=== PATIENT | male | born 1970 | race Caucasian/White ===

== ENCOUNTER 2020-06-18 17:05 | Emergency (ER) | payer SELFPAY ==
[2020-06-18 17:23] VITALS: BP 133/87; PULSE 68; RESP 18; TEMP 36.6; O2SAT 99; BMI 20.3
--- NOTE | 2020-06-18 17:37 | US_ITS ---
WS: [id number] RIGHT UPPER QUADRANT ULTRASOUND HISTORY: RUQ pain with vomiting COMPARISON: 11/05/2007 Liver: 12.5 cm in length. Normal size liver. No bile duct dilatation or mass. Gallbladder: Normally distended gallbladder with no stones or wall thickening. CBD: 0.3 cm Pancreas: Normal size and echogenicity. Right kidney: 11.1 cm in length. Normal size and echogenicity. No hydronephrosis or mass. Aorta and IVC: Unremarkable abdominal aorta and IVC. No ascites. US/US gall bladder [id number] IMPRESSION: Normal RIGHT upper quadrant ultrasound.
--- NOTE | 2020-06-18 17:39 | W.ED.ABDPA2 ---
HPI - Abdominal Pain General: Chief Complaint: Abdominal Pain Stated Complaint: stomach pains, threw up blood this AM Time Seen by Provider: 06/18/20 17:15 Source: patient Mode of arrival: ambulatory Limitations: no limitations History of Present Illness: HPI narrative: Pleasant 49-year-old male patient to the emergency department with 2 to 3-month history of abdominal pain. He reports pain occurs in waves along with nausea. He states feels he is on a roller coaster with his symptoms of nausea. He sometimes experiences nausea vomiting in the mornings and sometimes he does not. He reports abdominal pain does not coincide with meals; however he states at times he can drink something and then vomit. He denies fever, denies chills, denies diarrhea. He reports chronic history of constipation but does not take anything [id number] for it. He reports use of Pepto-Bismol without relief. He reports last episode of emesis was this morning, states there may have been blood in it but not for sure. He also reports ate today between 2 and 3:00 PM. He denies nausea or vomiting/complaints of abdominal pain at this time. He reports has not followed up with a primary care provider as he is new to the area and states lack of insurance has compromised his ability for follow-up. MD elicited complaint: abdominal pain Associated Symptoms: Reports bloating, constipation, hematemesis, nausea and vomiting; Denies belching, change in bowel habits, change in stool character, chills, GI cramping, diarrhea, dysuria, excessive flatus, fever(s), heartburn, hematochezia, hematuria, fecal incontinence and melena Review of Systems General: Reports: 10 or more systems reviewed and unremarkable except in HPI and below Const: Reports: fatigue; Denies: fever(s), chills, malaise, night sweats or diaphoresis Eyes: Denies: blurry vision, eye redness, yellow eyes or seeing flashes ENMT: Denies: throat pain, uvular edema, dental pain, halitosis, disequilibrium, nasal discharge, nasal congestion or epistaxis Card: Denies: chest pain, palpitations, irregular heart rhythm, swelling of feet/ankles, lightheadedness, dyspnea on exertion or orthopnea Resp: Denies: dyspnea, productive cough, non-productive cough, wheezing or chest congestion GI: Reports: abdominal pain, nausea, vomiting, hematemesis, dysphagia, early satiety, constipation and bloating; Denies: heartburn, diarrhea, GI cramping, belching, excessive flatus, fecal incontinence, change in bowel habits, change in stool character, hematochezia or melena : Denies: difficulty urinating, dysuria, difficulty starting urination or hematuria Musc: Denies: neck pain, back pain, joint pain or joint warmth Skin/Breast: Denies: rash, pruritus, erythema or changes in skin color Neuro: Denies: headache(s), weakness in extremities or behavioral changes Psych: Denies: anxiety or depression Jerome/Lymph: Denies: easy bruising PFSH ED PFSH: Medical History (Updated 06/18/20 @ 21:46 by MELIDA Mayberry) Healthy adult Surgical History History of lumbar laminectomy History of tonsillectomy Social History (Updated 06/18/20 @ 17:47 by MELIDA Mayberry) Alcohol intake: never Substance/Drug Use: never Physical Exam Const: COMMON NORMALS: no acute distress, patient oriented x3, healthy appearing and alert GENERAL APPEARANCE: cooperative, comfortable and well hydrated HENMT: COMMON NORMALS: normocephalic, Normal external nose present and moist oral mucous membranes HEAD & SCALP: normocephalic NOSE: Normal external nose present THROAT: no uvular edema Eye: COMMON NORMALS: Equal, round and reactive pupils present and EOMs intact bilaterally GENERAL EYE: appearance normal, both eyes and all related structures PUPIL: Yes Equal, round and reactive pupils present Neck/C-Spine: COMMON NORMALS: full ROM and no lymphadenopathy GENERAL: Yes normal visual inspection and Yes trachea midline CERVICAL SPINE: Yes cervical ROM normal Lymph: LYMPHATIC: no lymphadenopathy noted Chest: COMMONS NORMALS: normal inspection of the chest and normal palpation of entire chest wall CHEST: No localized rib tenderness with anteroposterior compression Resp: COMMON NORMALS: normal respiratory effort, No retractions, No use of accessory muscles and clear to auscultation bilaterally EFFORT & INSPECTION: Yes able to speak in complete sentences and No audible wheezes AUSCULTATION: clear to auscultation bilaterally, no wheezes and lung sounds not diminished Cardio: COMMON NORMALS: regular rate, regular rhythm, S1 normal heart sound present, S2 normal heart sound present and Peripheral pulses 2+ throughout RATE: regular rate RHYTHM: regular rhythm HEART SOUNDS: S1 normal heart sound present and S2 normal heart sound present PERIPHERAL PULSES: Peripheral pulses 2+ throughout GI: COMMON NORMALS: Normal to inspection, nondistended, normoactive bowel sounds present and Soft to palpation INSPECTION: Yes normal to inspection, No Abdominal wall edema, No central obesity, No visible herniation and No Fluid wave present AUSCULTATION: Yes normoactive bowel sounds PALPATION: Yes Soft to palpation, Yes Tenderness to palpation present (GI) Details: RUQ, No Hepatosplenomegaly present, No Ascites present and No Abdominal wall crepitus present PERCUSSION: normal to percussion and no fluid wave : COMMON NORMALS: Yes no CVA tenderness BLADDER/KIDNEY EXAM: Yes no CVA tenderness Back/Pelvis: COMMON NORMALS: no CVA tenderness, thoracic and lumbar spine normal to inspection, no thoracic nor lumbar tenderness, thoraco-lumbar ROM normal and straight leg raise negative bilaterally Extremity: COMMON NORMALS: normal to inspection, full ROM, capillary refill normal and no pedal edema GENERAL: Yes normal exam except as noted Neuro: COMMON NORMALS: patient oriented x3 and no focal motor deficits SENSORIUM/ORIENTATION: Yes alert Psych: COMMON NORMALS: mental status grossly normal, Normal thought process present and cooperative ACTIVITY/MOTOR BEHAVIOR: Yes appropriate eye contact THOUGHT PROCESS: Normal thought process present Skin: COMMON NORMALS: no rashes or lesions noted and turgor normal GENERAL SKIN EXAM: no rashes or lesions noted and turgor normal Course Vital Signs: Vital signs: Vital Signs Temperature 97.8 F 06/18/20 17:23 Pulse Rate 70 06/18/20 22:58 Respiratory Rate 18 06/18/20 22:58 Blood Pressure 106/60 06/18/20 22:58 Pulse Oximetry 98 06/18/20 22:58 MDM - Abdominal Pain MDM Narrative: Medical decision making narrative: 49-year-old male patient presents to the emergency department with several month history of abdominal pain. He reports possible blood in his emesis this morning, patient found to have right upper quadrant tenderness upon exam, right upper quadrant ultrasound revealed questionable edema around the gallbladder with contraction of the gallbladder. CT of the abdomen and pelvis with IV contrast revealed normal appearing gallbladder with moderate to large amount of formed stool throughout the colon. Serology results normal, lipase 22, white blood count normal. He does states does not have a primary care provider and referral to sr. social media & mobile manager completed to assist with PCP referral process. 1 bottle of mag citrate was provided here in the ED for his constipation. I discussed bowel regimen with initiation of MiraLAX daily. He has suffered from constipation for years. I discussed possible need for colonoscopy with establishment of primary care due to continued constipation habit. He did not exhibit nausea vomiting here in the ED. Patient was administered morphine with resolution of pain he experienced after ultrasound completed. He was initiated on Pepcid for gastritis Differential Diagnosis: Differential diagnosis abdominal pain: Likely abdominal pain, acute appendicitis and constipation Lab Data: Labs: Lab Results 06/18/20 06/18/20 06/18/20 Range/Units 18:10 18:10 20:30 WBC 4.6 (4.0-10.0) 10^3/ uL RBC 4.26 (4.1-5.3) 10^6/u L Hgb 12.9 (11.7-16.6) g/dL Hct 38.8 L (42.0-52.0) % MCV 91.1 (80-94) fL MCH 30.3 (28.0-34.0) pg MCHC 33.2 (30.0-36.0) g/dL RDW 13.0 (12.1-15.1) % Plt Count 201 (130-400) 10^3/c mm MPV 11.3 H (7.4-10.4) fL Neut % (Auto) 52.1 % Lymph % (Auto) 29.6 % [place] % (Auto) 15.2 % Eos % (Auto) 2.2 % Baso % (Auto) 0.9 % Neut # (Auto) 2.40 (1.8-7.7) 10^3/u L Lymph # (Auto) 1.4 (0.8-4.8) 10^3/u L [place] # (Auto) 0.7 (0.2-0.9) 10^3/u L Eos # (Auto) 0.1 (0.0-0.8) 10^3/u L Baso # (Auto) 0.0 (0.0-0.1) 10^3/u L Nucleated RBC % (a uto) 0 % Nucleated RBCs # 0.0 /100WBC Sodium 140 (136-145) mmol/L Potassium 4.0 (3.5-5.1) mmol/L Chloride 104 (98-107) mmol/L Carbon Dioxide 26 (22-29) mmol/L Anion Gap 14.0 (5-19) BUN 18 (6-20) mg/dL Creatinine 0.7 (0.7-1.2) mg/dL GFR Calculation 120.9 (90-130) mL/min Glucose 122 H (65-115) mg/dL Calculated Osmolal ity 293 (285-295) mOsm/k g Calcium 8.3 L (8.5-10.5) mg/dL Total Bilirubin 0.4 (0.15-1.2) mg/dL AST 19 (0-40) U/L ALT 16 (0-41) U/L Alkaline Phosphata se 47 (40-130) IU/L Total Protein 6.8 (6.6-8.7) g/dL Albumin 4.0 (3.5-5.2) g/dL Globulin 2.8 (1.3-4.6) g/dL Lipase 22 (13-60) U/L Urine Color Yellow (Yellow) Urine Appearance Cloudy (CLEAR) Urine pH 7 (5-7) Ur Specific Gravit y 1.010 (1.005-1.030) Urine Protein Neg (Negative) Urine Glucose (UA) Norm (Normal) Urine Ketones Negative (Negative) Urine Blood Neg (Negative) Urine Nitrate Negative (Negative) Urine Bilirubin Neg (Negative) Urine Urobilinogen Norm (Negative) mg/dL Ur Leukocyte Kathryn ase Negative (Negative) Urine RBC 0-4 H (0-2) /hpf Urine WBC None (0-5) /hpf Ur Squamous Epith Cells Rare (0-5) /hpf Amorphous Sediment Not Reportable Urine Bacteria None (NONE) /hpf Imaging Data ^: CT Abd/Pel: Radiologist's impression: [address] [address] [address] Scan Report Signed Patient: Suhail Cao Unit #: [id number] : 1970 Age/Sex: 49 / M ADM Date: 06/18/20 Loc: ER Room/Bed: Attending Dr: Ordering Provider/Ordering MD: Yudy Romero Date of Service: 06/18/20 Procedure(s): CT abdomen pelvis w con* [id number] Accession Number(s): [id number] Report Number: [id number] PROCEDURE INFORMATION: Exam: CT Abdomen And Pelvis With Contrast Exam date and time: 06/18/2020 8:46 PM Age: 49 years old Clinical indication: Abdominal pain; Generalized; Prior surgery; Surgery type: Lumbar fusion; Patient HX: Abd pain with n/v; Additional info: Abd pain, gb edema TECHNIQUE: Imaging protocol: Computed tomography of the abdomen and pelvis with contrast. Radiation optimization: All CT scans at this facility use at least one of these dose optimization techniques: automated exposure control; mA and/or kV adjustment per patient size (includes targeted exams where dose is matched to clinical indication); or iterative reconstruction. Contrast material: OMNI 300; Contrast volume: 95 ml; Contrast route: INTRAVENOUS (IV); COMPARISON: US gall bladder [id number] 06/18/2020 6:57 PM RADIATION DOSE METRICS: Total DLP (mGy-cm): 946.41 FINDINGS: Lungs: The visualized lung bases are clear. Liver: Normal size and density. No focal mass. Gallbladder and bile ducts: No intrahepatic or extrahepatic biliary dilitation. No calcified stones. A Phrygian cap noted. No CT evidence of edema or pericholecystic fluid. Pancreas: No evidence of mass. No ductal dilation. Spleen: No splenomegaly or mass. Adrenal glands: Normal. Kidneys and ureters: A 3 mm left renal stone. No hydronephrosis. Normal renal enhancement. Stomach and bowel: Moderate to large amount of formed stool throughout the colon. No signs of obstruction. No significant diverticula. No focal bowel wall thickening or mass. Appendix: Normal appendix. Intraperitoneal space: No free air. No free fluid or evidence of abscess. Vasculature: No concerning abnormalities. Lymph nodes: No lymphadenopathy. Urinary bladder: Normal CT appearance. Reproductive: Normal CT appearance for age. Bones/joints: Postsurgical changes at L5-S1. Soft tissues: Within normal limits. CT/CT abdomen pelvis w con* [id number]: 1[address] No CT abnormalities of the gallbladder. 2. A 3 mm left renal stone. 3. Moderate to large amount of formed stool throughout the colon. Radiation Dose CTDIVOL = (mGy): DLP = 946.41 (mGy-cm) Dictated By: Kevyn Webb Signed By: Kevyn Webb Discharge Plan Discharge Patient Disposition: Home Clinical Impression: Constipation Qualifiers: Constipation type: slow transit constipation Qualified Code(s): K59.01 - Slow transit constipation Abdominal pain Qualifiers: Abdominal location: generalized Qualified Code(s): R10.84 - Generalized abdominal pain Gastritis Qualifiers: Gastritis type: unspecified gastritis Chronicity: unspecified Gastritis bleeding: without bleeding Qualified Code(s): K29.70 - Gastritis, unspecified, without bleeding Condition: Stable Prescriptions: New Miralax 17 gram/dose powder 17 g PO DAILY Qty: 510 RF: 0 Pepcid 20 mg tablet 20 mg PO BID Qty: 20 RF: 0 No Action Requip 1 mg Tablet See Rx Instructions .ROUTE .COMPLEX RF: 0 lisinopril 20 mg Tablet See Rx Instructions .ROUTE .COMPLEX RF: 0 Ultram 50 mg Tablet 50 mg PO Q6H PRN (Reason: Pain) RF: 0 Discharge Orders: Discharge ED (Routine); Ordered 06/18/20 Ordered By: Yudy Romero Referrals: Sarthak Metcalf MD [Primary Care Provider] - Discharge Activity: Resume usual activity Patient Instructions: Gastritis (ED), Constipation (ED), High Fiber Diet (ED), Abdominal Pain (ED), Opioid Safety Activity Restrictions/Additional Instructions: nursing services manager will be contacting you with a follow-up appointment with your primary care provider -please follow-up accordingly Take prescribed medications as directed If diarrhea occurs, stop MiraLAX Return to the emergency department if you develop worsening pain, vomiting blood or blood in your stool Stand Alone Forms: Work/School Release Coding Level of Care Code ED Vision Mixer for Chg Fwd Exam Comprehensive
[2020-06-18 18:17] VITALS: O2SAT 96
[2020-06-18 18:54] LABS: Basophils % 0.9 %; Eosinophils # 0.1 10^3/uL (0.0-0.8); Eosinophils % 2.2 %; Hematocrit 38.8 % (42.0-52.0); Hemoglobin 12.9 g/dL (11.7-16.6); Lymphocytes # 1.4 10^3/uL (0.8-4.8); Lymphocytes % 29.6 %; Mean Corpuscular HGB Conc 33.2 g/dL (30.0-36.0); Mean Corpuscular Hemoglobin 30.3 pg (28.0-34.0); Mean Corpuscular Volume 91.1 fL (80-94); Mean Platelet Volume 11.3 fL (7.4-10.4); Monocytes # 0.7 10^3/uL (0.2-0.9); Monocytes % 15.2 %; Neutrophils % 52.1 %; Nucleated Red Blood Cells % 0 %; Platelet Count 201 10^3/cmm (130-400); Red Blood Count 4.26 10^6/uL (4.1-5.3); White Blood Count 4.6 10^3/uL (4.0-10.0)
--- NOTE | 2020-06-18 19:10 | CTR_ITS ---
PROCEDURE INFORMATION: Exam: CT Abdomen And Pelvis With Contrast Exam date and time: 06/18/2020 8:46 PM Age: 49 years old Clinical indication: Abdominal pain; Generalized; Prior surgery; Surgery type: Lumbar fusion; Patient HX: Abd pain with n/v; Additional info: Abd pain, gb edema TECHNIQUE: Imaging protocol: Computed tomography of the abdomen and pelvis with contrast. Radiation optimization: All CT scans at this facility use at least one of these dose optimization techniques: automated exposure control; mA and/or kV adjustment per patient size (includes targeted exams where dose is matched to clinical indication); or iterative reconstruction. Contrast material: OMNI 300; Contrast volume: 95 ml; Contrast route: INTRAVENOUS (IV); COMPARISON: US gall bladder [id number] 06/18/2020 6:57 PM RADIATION DOSE METRICS: Total DLP (mGy-cm): 946.41 FINDINGS: Lungs: The visualized lung bases are clear. Liver: Normal size and density. No focal mass. Gallbladder and bile ducts: No intrahepatic or extrahepatic biliary dilitation. No calcified stones. A Phrygian cap noted. No CT evidence of edema or pericholecystic fluid. Pancreas: No evidence of mass. No ductal dilation. Spleen: No splenomegaly or mass. Adrenal glands: Normal. Kidneys and ureters: A 3 mm left renal stone. No hydronephrosis. Normal renal enhancement. Stomach and bowel: Moderate to large amount of formed stool throughout the colon. No signs of obstruction. No significant diverticula. No focal bowel wall thickening or mass. Appendix: Normal appendix. Intraperitoneal space: No free air. No free fluid or evidence of abscess. Vasculature: No concerning abnormalities. Lymph nodes: No lymphadenopathy. Urinary bladder: Normal CT appearance. Reproductive: Normal CT appearance for age. Bones/joints: Postsurgical changes at L5-S1. Soft tissues: Within normal limits. CT/CT abdomen pelvis w con* [id number]PRESS[address]: 1. No CT abnormalities of the gallbladder. 2. A 3 mm left renal stone. 3. Moderate to large amount of formed stool throughout the colon. Radiation Dose CTDIVOL = (mGy): DLP = 946.41 (mGy-cm)
[2020-06-18 19:35] VITALS: BP 103/58; PULSE 68; RESP 18; O2SAT 97
[2020-06-18 19:39] LABS: Alanine Aminotransferase 16 U/L (0-41); Alkaline Phosphatase 47 IU/L (40-130); Aspartate Amino Transferase 19 U/L (0-40); Blood Urea Nitrogen 18 mg/dL (6-20); Calcium 8.3 mg/dL (8.5-10.5); Carbon Dioxide 26 mmol/L (22-29); Chloride 104 mmol/L (98-107); Globulin 2.8 g/dL (1.3-4.6); Glomerular Filtration Rate 120.9 mL/min (90-130); Glucose 122 mg/dL (65-115); Lipase 22 U/L (13-60); Osmolality Calculated 293 mOsm/kg (285-295); Sodium 140 mmol/L (136-145); Total Bilirubin 0.4 mg/dL (0.15-1.2); Total Protein 6.8 g/dL (6.6-8.7)
[2020-06-18 20:30] VITALS: RESP 18
[2020-06-18] MEDS: morphine 4 mg/mL SDV 1 mL IVP (20:30)
[2020-06-18] MEDS: ondansetron 2 mg/ML SDV 2 mL 4 MG IVP (20:30)
[2020-06-18 20:55] LABS: Add Urine Microscopic? YES; Bilirubin Urine Neg (Negative); Blood Urine Neg (Negative); Glucose Urine UA Norm (Normal); Ketones Urine Negative (Negative); Leukocyte Esterase Urine Negative (Negative); Nitrate Urine Negative (Negative); Protein Urine Neg (Negative); RBC Urine 0-4 /hpf (0-2); Urine Appearance Cloudy (CLEAR); Urine Color Yellow (Yellow); Urobilinogen Urine Norm (Negative); pH Urine 7 (5-7)
[2020-06-18 20:56] LABS: Add Urine Culture? No; Squamous Epithelial Cell Urine RARE /hpf (0-5)
[2020-06-18] MEDS: iohexol 300 mg/mL 100 mL Btl IV (21:01)
[2020-06-18 22:58] VITALS: BP 106/60; PULSE 70; RESP 18; O2SAT 98
--- NOTE | 2020-06-19 10:30 | DCPLANNER ---
feedlot manager had message to speak with patient about getting established with a primary care physician. feedlot manager called phone number [phone], spoke with patients . feedlot manager asked patients , if she would give patient a message to call lead case manager back regarding getting established with a primary care physician.
== END 2020-06-18 22:30 | disposition home or self-care (01) ==
PROVIDERS: Emergency Medicine; Emergency Provider Nurse Practitioner Family; PCP Family Medicine
DX: K59.01 Slow transit constipation (principal); K29.70 Gastritis, unspecified, without bleeding
CPT/HCPCS: 74177; 76705; 80053; 81001; 83690; 85025; 96374; 96375; 99284; J2270; J2405; Q9967

== ENCOUNTER 2020-06-21 11:43 | Emergency (ER) | payer SELFPAY ==
[2020-06-21 12:23] VITALS: BP 164/105; PULSE 76; RESP 18; TEMP 37.2; O2SAT 98; BMI 19.6
[2020-06-21 12:37] VITALS: BP 141/92; PULSE 70; RESP 15; O2SAT 98
[2020-06-21 13:07] LABS: Basophils % 0.6 %; Eosinophils % 0.2 %; Hematocrit 43.7 % (42.0-52.0); Hemoglobin 14.5 g/dL (11.7-16.6); Lymphocytes # 1.1 10^3/uL (0.8-4.8); Lymphocytes % 21.2 %; Mean Corpuscular HGB Conc 33.2 g/dL (30.0-36.0); Mean Corpuscular Hemoglobin 30.2 pg (28.0-34.0); Mean Platelet Volume 10.7 fL (7.4-10.4); Monocytes # 0.6 10^3/uL (0.2-0.9); Monocytes % 11.1 %; Neutrophils # 3.49 10^3/uL (1.8-7.7); Neutrophils % 66.5 %; Nucleated Red Blood Cells % 0 %; Platelet Count 214 10^3/cmm (130-400); Red Cell Distribution Width 12.8 % (12.1-15.1); White Blood Count 5.2 10^3/uL (4.0-10.0)
--- NOTE | 2020-06-21 13:19 | ED_ITS ---
HPI - Abdominal Pain General: Chief Complaint: Abdominal Pain Stated Complaint: AB PAIN Time Seen by Provider: 06/21/20 12:38 History of Present Illness: HPI narrative: Patient is a 49-year-old male who comes to the ED with abdominal pain and nausea. Patient was seen here in the ED for same complaint on June 18. Patient was diagnosed with gastritis, constipation and abdominal pain and discharged home with a prescription for Pepcid and MiraLAX and patient says he is not filled those prescriptions yet. He comes to the ED with periumbilical abdominal pain that he rates a 6 out of 10. Patient's pain he describes is sharp and stabbing pain in the abdomen. He reports having nausea for the past couple days but denies any emesis since being discharged on the . He has had multiple soft stools over the last 3 days. He reports a decreased appetite but says that that is a chronic issue that he has had for months. He reports when he eats he gets nauseous a lot of times and cannot eat very much. Denies fever, chills, chest pain, shortness of breath, dysuria or hematuria. Associated Symptoms: Reports diarrhea and nausea; Denies chills, constipation, dysuria, fever(s), hematochezia, hematuria and vomiting Review of Systems Const: Denies: fever(s), chills or fatigue Eyes: Denies: change in vision or eye discomfort ENMT: Denies: throat pain, odynophagia, nasal discharge or nasal congestion Card: Denies: chest pain, palpitations, edema, swelling of feet/ankles, dyspnea on exertion or orthopnea Resp: Denies: dyspnea, productive cough or non-productive cough GI: Reports: abdominal pain, nausea and diarrhea; Denies: vomiting, constipation or hematochezia : Denies: flank pain, difficulty urinating, dysuria or hematuria Musc: Denies: neck pain, back pain or extremity swelling Skin/Breast: Denies: rash or new lesions Neuro: Denies: headache(s), numbness in extremities or weakness in extremities PFS ED PFSH: Medical History Healthy adult Surgical History History of lumbar laminectomy History of tonsillectomy Social History Alcohol intake: never Physical Exam Const: COMMON NORMALS: no acute distress, patient oriented x3 and alert GENERAL APPEARANCE: cooperative and comfortable HENMT: COMMON NORMALS: normocephalic HEAD & SCALP: normocephalic MOUTH: Normal oral and palatal mucosa present THROAT: posterior oropharynx normal and uvula midline Neck/C-Spine: COMMON NORMALS: supple GENERAL: Yes normal visual inspection Resp: COMMON NORMALS: normal respiratory effort, No retractions, No use of accessory muscles and clear to auscultation bilaterally AUSCULTATION: clear to auscultation bilaterally Cardio: COMMON NORMALS: regular rate, regular rhythm, S1 normal heart sound present, S2 normal heart sound present, No gallops present (Cardio), No clicks present (Cardio), No murmurs present (Cardio) and Peripheral pulses 2+ throughout RATE: regular rate RHYTHM: regular rhythm HEART SOUNDS: S1 normal heart sound present and S2 normal heart sound present PERIPHERAL PULSES: Peripheral pulses 2+ throughout GI: COMMON NORMALS: Normal to inspection, nondistended, normoactive bowel sounds present, Soft to palpation and no masses PALPATION: Yes Soft to palpation and Yes Tenderness to palpation present (GI) Details: other (Mild periumbilical tenderness.) : COMMON NORMALS: Yes no CVA tenderness BLADDER/KIDNEY EXAM: Yes no CVA tenderness Back/Pelvis: COMMON NORMALS: no CVA tenderness Extremity: COMMON NORMALS: normal to inspection Neuro: COMMON NORMALS: patient oriented x3 SENSORIUM/ORIENTATION: Yes alert GAIT: Yes Normal gait present Skin: GENERAL SKIN EXAM: dry skin Course Vital Signs: Vital signs: Vital Signs Temperature 98.9 F 06/21/20 12:23 Pulse Rate 73 06/21/20 14:50 Respiratory Rate 15 06/21/20 14:50 Blood Pressure 122/79 06/21/20 14:50 Pulse Oximetry 97 06/21/20 14:50 MDM - Abdominal Pain MDM Narrative: Medical decision making narrative: Patient is a 49-year-old male comes to the ED with nausea and abdominal pain. Patient was seen here in the ED on June 18 for same complaint. He was discharged home with Pepcid and he has not filled prescription yet. Full work-up was done on June [address] of abdomen just showed large amount of stool in bowels with no impaction. Ultrasound gallbladder showed no acute findings. Patient having similar symptoms as he had on the . Vital stable. Labs were unremarkable. Due to no real change in symptoms or labs since CT abdomen and ultrasound of the gallbladder were done 3 days ago, so I did not order any repeat imaging. Patient was given IV fluids, Zofran, morphine and a GI cocktail symptoms improved. Patient diagnosed with gastritis and abdominal pain and discharged home with a prescription for Zofran. I told him he needs to get his Pepcid prescription filled soon as he can. Patient received a referral from case management to set up a PCP. Return to ED precautions given. Patient understood agree with plan. Lab Data: Attestation: I reviewed the patient's lab results. Labs: Lab Results 06/21/20 06/21/20 Range/Units 13:00 13:00 WBC 5.2 (4.0-10.0) 10^3/ uL RBC 4.80 (4.1-5.3) 10^6/u L Hgb 14.5 (11.7-16.6) g/dL Hct 43.7 (42.0-52.0) % MCV 91.0 (80-94) fL MCH 30.2 (28.0-34.0) pg MCHC 33.2 (30.0-36.0) g/dL RDW 12.8 (12.1-15.1) % Plt Count 214 (130-400) 10^3/c mm MPV 10.7 H (7.4-10.4) fL Neut % (Auto) 66.5 % Lymph % (Auto) 21.2 % [place] % (Auto) 11.1 % Eos % (Auto) 0.2 % Baso % (Auto) 0.6 % Neut # (Auto) 3.49 (1.8-7.7) 10^3/u L Lymph # (Auto) 1.1 (0.8-4.8) 10^3/u L [place] # (Auto) 0.6 (0.2-0.9) 10^3/u L Eos # (Auto) 0.0 (0.0-0.8) 10^3/u L Baso # (Auto) 0.0 (0.0-0.1) 10^3/u L Nucleated RBC % (a uto) 0 % Nucleated RBCs # 0.0 /100WBC Sodium 138 (136-145) mmol/L Potassium 4.3 (3.5-5.1) mmol/L Chloride 103 (98-107) mmol/L Carbon Dioxide 27 (22-29) mmol/L Anion Gap 12.3 (5-19) BUN 12 (6-20) mg/dL Creatinine 0.6 L (0.7-1.2) mg/dL GFR Calculation 144.4 H (90-130) mL/min Glucose 91 (65-115) mg/dL Calculated Osmolal ity 285 (285-295) mOsm/k g Calcium 8.7 (8.5-10.5) mg/dL Total Bilirubin 0.5 (0.15-1.2) mg/dL AST 18 (0-40) U/L ALT 15 (0-41) U/L Alkaline Phosphata se 51 (40-130) IU/L Total Protein 7.8 (6.6-8.7) g/dL Albumin 4.3 (3.5-5.2) g/dL Globulin 3.5 (1.3-4.6) g/dL Lipase 99 H (13-60) U/L Discharge Plan Discharge Patient Disposition: Home Clinical Impression: Gastritis Qualifiers: Gastritis type: unspecified gastritis Chronicity: acute Gastritis bleeding: without bleeding Qualified Code(s): K29.00 - Acute gastritis without bleeding Abdominal pain Qualifiers: Abdominal location: periumbilical Qualified Code(s): R10.33 - Periumbilical pain Condition: Stable Prescriptions: New Zofran 4 mg tablet 4 mg PO Q8H Qty: 30 RF: 0 No Action ropinirole [Requip] 1 mg Tablet See Rx Instructions .ROUTE .COMPLEX RF: 0 lisinopril 20 mg Tablet See Rx Instructions .ROUTE .COMPLEX RF: 0 tramadol [Ultram] 50 mg Tablet 50 mg PO Q6H PRN (Reason: Pain) RF: 0 polyethylene glycol 3350 [Miralax] 17 gram/dose powder 17 g PO DAILY Qty: 510 RF: 0 famotidine [Pepcid] 20 mg tablet 20 mg PO BID Qty: 20 RF: 0 aspirin 325 mg Tablet 325 mg PO PRN RF: 0 ibuprofen 200 mg Tablet 600 mg PO PRN RF: 0 Discharge Orders: Discharge ED (Routine); Ordered 06/21/20 Ordered By: Se Addison Discharge Diet: Advance as tolerated Discharge Activity: Resume usual activity Patient Instructions: Gastritis (ED), Abdominal Pain (ED) Activity Restrictions/Additional Instructions: Follow-up with medical provider as directed. Call back case management to get set up with your PCP. Take medications as prescribed. Return to the ER or your medical provider if condition worsens. Please read and understand discharge instructions. If any questions, please ask. Coding Level of Care Code ED [employer] for Billy Fwd Exam Comprehensive
[2020-06-21 13:27] VITALS: BP 127/80; PULSE 90; RESP 16; O2SAT 98
[2020-06-21] MEDS: morphine 4 mg/mL SDV 1 mL IVP (13:28)
[2020-06-21] MEDS: ondansetron 2 mg/ML SDV 2 mL 4 MG IVP (13:28)
[2020-06-21] MEDS: sodium chloride 0.9% 1,000 ML 999 ML IV (13:29)
[2020-06-21 13:31] LABS: Alanine Aminotransferase 15 U/L (0-41); Albumin Level 4.3 g/dL (3.5-5.2); Alkaline Phosphatase 51 IU/L (40-130); Anion Gap 12.3 (5-19); Aspartate Amino Transferase 18 U/L (0-40); Blood Urea Nitrogen 12 mg/dL (6-20); Calcium 8.7 mg/dL (8.5-10.5); Carbon Dioxide 27 mmol/L (22-29); Chloride 103 mmol/L (98-107); Globulin 3.5 g/dL (1.3-4.6); Glomerular Filtration Rate 144.4 mL/min (90-130); Glucose 91 mg/dL (65-115); Lipase 99 U/L (13-60); Osmolality Calculated 285 mOsm/kg (285-295); Potassium 4.3 mmol/L (3.5-5.1); Sodium 138 mmol/L (136-145); Total Bilirubin 0.5 mg/dL (0.15-1.2); Total Protein 7.8 g/dL (6.6-8.7)
[2020-06-21] MEDS: lidocaine 2% viscous 15 ML, aluminum-mag hydrox-simethicon 30 ML, sucralfate oral liq 1 GM PO (14:48)
[2020-06-21 14:50] VITALS: BP 122/79; PULSE 73; RESP 15; O2SAT 97
--- NOTE | 2020-06-24 12:58 | DCPLANNER ---
Addendum entered by Sherrie Alan 06/26/20 09:51: api product manager tried to call patient again at phone number [phone], which a recording stated that the phone number is not reachable at this time. Letter was sent to patient with the appointment information. Original Note: Patient called child welfare caseworker to ask child welfare caseworker about getting established with a primary care physician. Patient stated that he would like to be seen with [facility] and that he would like to be established with a woman. api product manager called [facility], spoke with Soh, a follow up appointment was scheduled for Sunday, July 12, 2020 at 9:[address] Fierro. api product manager called phone number at [phone], which is no longer taking calls. api product manager also called [phone] which is no longer in service. api product manager mailed patient a letter with the appointment information included.
--- NOTE | 2020-06-27 11:35 | DCPLANNER ---
manager state called patients phone number again, this time case preparer and liner was able to speak wit patients friend, gave her the appointment information. manager state explained that case preparer and liner had not been able to reach patient to give him the appointment information and that a letter was sent to patient with the appointment information. manager state also explained that [facility] will send a letter to patient and if patient does not call and confirm the appointment that the appointment will be cancelled.
--- NOTE | 2020-07-22 15:46 | DCPLANNER ---
Patient had a follow up appointment scheduled for 07.11.[address] Fierro for primary care. Patient did attend appointment.
== END 2020-06-21 14:55 | disposition home or self-care (01) ==
PROVIDERS: Emergency Provider Physician Assistant
DX: K29.00 Acute gastritis without bleeding (principal); R10.33 Periumbilical pain; Z79.82 Long term (current) use of aspirin
CPT/HCPCS: 80053; 83690; 85025; 96361; 96374; 96375; 96376; 99284; J2270; J2405; J7030

== ENCOUNTER 2020-12-03 18:31 | Emergency (ER) | payer SELFPAY ==
[2020-12-03 19:22] VITALS: BP 155/97; PULSE 77; RESP 16; TEMP 36.9; O2SAT 97; BMI 20.3
[2020-12-03 21:03] LABS: Basophils # 0.1 10^3/uL (0.0-0.1); Basophils % 0.8 %; Eosinophils # 0.1 10^3/uL (0.0-0.8); Eosinophils % 1.7 %; Hematocrit 43.2 % (42.0-52.0); Hemoglobin 14.3 g/dL (11.7-16.6); Mean Corpuscular HGB Conc 33.1 g/dL (30.0-36.0); Mean Corpuscular Volume 93.5 fl (80-94); Mean Platelet Volume 10.9 fL (7.4-10.4); Monocytes # 0.9 10^3/uL (0.2-0.9); Monocytes % 13.7 %; Neutrophils # 3.44 10^3/uL (1.8-7.7); Neutrophils % 52.5 %; Nucleated Red Blood Cells % 0 %; Platelet Count 198 10^3/cmm (130-400); Red Blood Count 4.62 10^6/uL (4.1-5.3); Red Cell Distribution Width 13.4 % (12.1-15.1); White Blood Count 6.6 10^3/uL (4.0-10.0)
[2020-12-03 21:29] LABS: Alanine Aminotransferase 33 U/L (0-41); Albumin Level 4.3 g/dL (3.5-5.2); Alkaline Phosphatase 58 IU/L (40-130); Aspartate Amino Transferase 27 U/L (0-40); Blood Urea Nitrogen 10 mg/dL (6-20); Calcium 8.8 mg/dL (8.5-10.5); Carbon Dioxide 29 mmol/L (22-29); Chloride 101 mmol/L (98-107); Globulin 3.2 g/dL (1.3-4.6); Glomerular Filtration Rate 103.2 mL/min (90-130); Glucose 86 mg/dL (65-115); Lipase 258 U/L (13-60); Osmolality Calculated 286 mOsm/kg (285-295); Sodium 139 mmol/L (136-145); Total Bilirubin 0.2 mg/dL (0.15-1.2); Total Protein 7.5 g/dL (6.6-8.7)
[2020-12-03 21:30] LABS: Anion Gap 13.1 (5-19); Potassium 4.1 mmol/L (3.5-5.1)
--- NOTE | 2020-12-03 22:27 | CTR_ITS ---
PROCEDURE INFORMATION: Exam: CT Abdomen And Pelvis With Contrast Exam date and time: 12/03/2020 10:27 PM Age: 50 years old Clinical indication: Abdominal pain; Prior surgery; Surgery type: Lumbar; Patient HX: Periumbilical pain with bloating. ; Additional info: Abd pain TECHNIQUE: Imaging protocol: Computed tomography of the abdomen and pelvis with contrast. Radiation optimization: All CT scans at this facility use at least one of these dose optimization techniques: automated exposure control; mA and/or kV adjustment per patient size (includes targeted exams where dose is matched to clinical indication); or iterative reconstruction. Contrast material: OMNI 300; Contrast volume: 95 ml; Contrast route: INTRAVENOUS (IV); COMPARISON: CT abdomen pelvis w con* [id number] 06/18/2020 9:12 PM RADIATION DOSE METRICS: Total DLP (mGy-cm): 961.83 FINDINGS: Liver: Normal. No mass. Gallbladder and bile ducts: Normal. No calcified stones. No ductal dilation. Pancreas: Normal. No ductal dilation. Spleen: Normal. No splenomegaly. Adrenal glands: Normal. No mass. Kidneys and ureters: 3 mm nonobstructing left upper pole kidney stone. Negative for hydronephrosis. No perinephric inflammation. Tiny subcentimeter right renal cortical cyst. Stomach and bowel: Unremarkable. No obstruction. No mucosal thickening. Appendix: Normal appendix. Intraperitoneal space: Unremarkable. No free air. No significant fluid collection. Vasculature: Unremarkable. No abdominal aortic aneurysm. Lymph nodes: Unremarkable. No enlarged lymph nodes. Urinary bladder: Unremarkable as visualized. Reproductive: Unremarkable as visualized. Bones/joints: L5-S1 posterior lumbar spine fusion without complication. L5 laminectomy. No acute lumbar spine fracture. Unremarkable lumbar spine alignment. Soft tissues: Unremarkable. CT/CT abdomen pelvis w con* [id number] IMPRESSION: Negative for acute abdominopelvic pathology. COMMENTS: Consistent with the [employer]'s Incidental Findings Committee white paper (J Am Asya Radiol 2018): Any incidental renal lesion less than 1 cm or classified as too small to characterize, or any incidental cystic renal lesion characterized as simple-appearing, is likely benign. No follow-up imaging is recommended for these lesions per consensus recommendations based on imaging criteria. Radiation Dose CTDIVOL = (mGy): DLP = 961.83 (mGy-cm)
[2020-12-03 22:42] VITALS: RESP 16; O2SAT 98
[2020-12-03] MEDS: HYDROmorphone 1 mg/mL INJ 1 mL IVP (22:42)
[2020-12-03] MEDS: sodium chloride 0.9% 1,000 ML 999 ML IV (22:43)
[2020-12-03] MEDS: ondansetron 2 mg/ML SDV 2 mL 4 MG IVP (22:43)
[2020-12-03] MEDS: iohexol 300 mg/mL 100 mL Btl IV (22:51)
[2020-12-03 23:13] VITALS: BP 133/96; PULSE 65; RESP 14; O2SAT 96
--- NOTE | 2020-12-03 23:20 | W.ED.ABDPA2 ---
HPI - Abdominal Pain General: Chief Complaint: Abdominal Pain Stated Complaint: ABD PAIN Time Seen by Provider: 12/03/20 22:22 Source: patient Mode of arrival: ambulatory Limitations: no limitations History of Present Illness: HPI narrative: 50-year-old male states that over the last 2 days he been having epigastric abdominal pain and fullness his abdomen. He states the pain resolved this morning then worsened again this afternoon. He states the pain is a 4 out of 10. He denies any worsening improving factors. He denies any vomiting or diarrhea. Associated Symptoms: Denies chills, dysuria and fever(s) Review of Systems Const: Denies: fever(s), chills, body aches or change in appetite Eyes: Denies: blurry vision or eye discomfort ENMT: Denies: throat pain or dental pain Card: Denies: chest pain Resp: Denies: dyspnea GI: Reports: abdominal pain : Denies: dysuria Musc: Denies: neck pain or back pain Skin/Breast: Denies: rash Neuro: Denies: headache(s) Psych: Denies: depression Jerome/Lymph: Denies: easy bruising All/Imm: Denies: urticaria PFSH ED PFSH: Medical History (Updated 12/03/20 @ 23:45 by Teresa Baer MD) Chronic low back pain Hypertension RLS (restless legs syndrome) Surgical History (Updated 07/11/20 @ 09:24 by Eula Fierro DO) H/O rotator cuff surgery Left - 1989 History of lumbar laminectomy L5-S1 in 2017 History of tonsillectomy Family History Father Parkinson disease Other CAD (coronary artery disease) Stroke Social History (Updated 10/02/20 @ 14:53 by Shuail Manley LPN) Smoking and tobacco status: current every day smoker smokeless tobacco Smokeless tobacco user: chewing tobacco Smokeless tobacco details: Can lasts 2- 2 1/2 days Quit status (tobacco): has tried quititng Number of times tried to quit tobacco: 3 Second hand smoke exposure: Yes Alcohol intake: never Physical Exam Const: COMMON NORMALS: no acute distress, patient oriented x3 and healthy appearing HENMT: COMMON NORMALS: normocephalic and atraumatic HEAD & SCALP: normocephalic and atraumatic Eye: COMMON NORMALS: Equal, round and reactive pupils present and EOMs intact bilaterally PUPIL: Yes Equal, round and reactive pupils present Neck/C-Spine: COMMON NORMALS: full ROM and supple Chest: COMMONS NORMALS: normal inspection of the chest and normal palpation of entire chest wall Resp: COMMON NORMALS: normal respiratory effort, No retractions, No use of accessory muscles and clear to auscultation bilaterally AUSCULTATION: clear to auscultation bilaterally Cardio: COMMON NORMALS: regular rate, regular rhythm and No murmurs present (Cardio) RATE: regular rate RHYTHM: regular rhythm GI: COMMON NORMALS: Normal to inspection, nondistended, normoactive bowel sounds present, Soft to palpation and no masses PALPATION: Yes Soft to palpation and Yes Tenderness to palpation present (GI) (mild epigastric tenderness) Extremity: COMMON NORMALS: normal to inspection and full ROM Neuro: COMMON NORMALS: patient oriented x3, moves all extremities and no focal motor deficits Psych: COMMON NORMALS: mental status grossly normal, Normal thought process present and cooperative THOUGHT PROCESS: Normal thought process present Skin: COMMON NORMALS: no rashes or lesions noted and no wounds GENERAL SKIN EXAM: no rashes or lesions noted Course Vital Signs: Vital signs: Vital Signs Temperature 98.4 F 12/03/20 19:22 Pulse Rate 65 12/03/20 23:13 Respiratory Rate 14 12/03/20 23:13 Blood Pressure 133/96 12/03/20 23:13 Pulse Oximetry 96 12/03/20 23:13 MDM - Abdominal Pain MDM Narrative: Medical decision making narrative: Patient presents here with abdominal pain. His blood work and CT scan here are normal. His lipase is very mildly elevated but he has no signs of pancreatitis on CT. I did inform MD he did all liquid diet just in case she does have a mild pancreatitis and will start him on pain meds. He is to follow-up his PCP and return if worsening. He understands and agrees to plan. Lab Data: Labs: Lab Results 12/03/20 12/03/20 Range/Units 20:55 20:55 WBC 6.6 (4.0-10.0) 10^3/ uL RBC 4.62 (4.1-5.3) 10^6/u L Hgb 14.3 (11.7-16.6) g/dL Hct 43.2 (42.0-52.0) % MCV 93.5 (80-94) fl MCH 31.0 (28.0-34.0) pg MCHC 33.1 (30.0-36.0) g/dL RDW 13.4 (12.1-15.1) % Plt Count 198 (130-400) 10^3/c mm MPV 10.9 H (7.4-10.4) fL Neut % (Auto) 52.5 % Lymph % (Auto) 31.0 % [place] % (Auto) 13.7 % Eos % (Auto) 1.7 % Baso % (Auto) 0.8 % Neut # (Auto) 3.44 (1.8-7.7) 10^3/u L Lymph # (Auto) 2.0 (0.8-4.8) 10^3/u L [place] # (Auto) 0.9 (0.2-0.9) 10^3/u L Eos # (Auto) 0.1 (0.0-0.8) 10^3/u L Baso # (Auto) 0.1 (0.0-0.1) 10^3/u L Nucleated RBC % (a uto) 0 % Nucleated RBCs # 0.0 /100WBC Sodium 139 (136-145) mmol/L Potassium 4.1 (3.5-5.1) mmol/L Chloride 101 (98-107) mmol/L Carbon Dioxide 29 (22-29) mmol/L Anion Gap 13.1 (5-19) BUN 10 (6-20) mg/dL Creatinine 0.8 (0.7-1.2) mg/dL GFR Calculation 103.2 (90-130) mL/min Glucose 86 (65-115) mg/dL Calculated Osmolal ity 286 (285-295) mOsm/k g Calcium 8.8 (8.5-10.5) mg/dL Total Bilirubin 0.2 (0.15-1.2) mg/dL AST 27 (0-40) U/L ALT 33 (0-41) U/L Alkaline Phosphata se 58 (40-130) IU/L Total Protein 7.5 (6.6-8.7) g/dL Albumin 4.3 (3.5-5.2) g/dL Globulin 3.2 (1.3-4.6) g/dL Lipase 258 H (13-60) U/L Imaging Data ^: CT Abd/Pel: Attestation: I personally reviewed and interpreted this imaging study as follows: Radiologist's impression: [facility] [address] [place] [address] CT Scan Report Signed Patient: Suhail Cao Unit #: [id number] : 1970 Age/Sex: 50 / M ADM Date: 12/03/20 Loc: ER Room/Bed: Attending Dr: Ordering Provider/Ordering MD: Teresa Baer MD Date of Service: 12/03/20 Procedure(s): CT abdomen pelvis w con* [id number] Accession Number(s): [id number] Report Number: [id number] PROCEDURE INFORMATION: Exam: CT Abdomen And Pelvis With Contrast Exam date and time: 12/03/2020 10:27 PM Age: 50 years old Clinical indication: Abdominal pain; Prior surgery; Surgery type: Lumbar; Patient HX: Periumbilical pain with bloating. ; Additional info: Abd pain TECHNIQUE: Imaging protocol: Computed tomography of the abdomen and pelvis with contrast. Radiation optimization: All CT scans at this facility use at least one of these dose optimization techniques: automated exposure control; mA and/or kV adjustment per patient size (includes targeted exams where dose is matched to clinical indication); or iterative reconstruction. Contrast material: OMNI 300; Contrast volume: 95 ml; Contrast route: INTRAVENOUS (IV); COMPARISON: CT abdomen pelvis w con* [id number] 06/18/2020 9:12 PM RADIATION DOSE METRICS: Total DLP (mGy-cm): 961.83 FINDINGS: Liver: Normal. No mass. Gallbladder and bile ducts: Normal. No calcified stones. No ductal dilation. Pancreas: Normal. No ductal dilation. Spleen: Normal. No splenomegaly. Adrenal glands: Normal. No mass. Kidneys and ureters: 3 mm nonobstructing left upper pole kidney stone. Negative for hydronephrosis. No perinephric inflammation. Tiny subcentimeter right renal cortical cyst. Stomach and bowel: Unremarkable. No obstruction. No mucosal thickening. Appendix: Normal appendix. Intraperitoneal space: Unremarkable. No free air. No significant fluid collection. Vasculature: Unremarkable. No abdominal aortic aneurysm. Lymph nodes: Unremarkable. No enlarged lymph nodes. Urinary bladder: Unremarkable as visualized. Reproductive: Unremarkable as visualized. Bones/joints: L5-S1 posterior lumbar spine fusion without complication. L5 laminectomy. No acute lumbar spine fracture. Unremarkable lumbar spine alignment. Soft tissues: Unremarkable. CT/CT abdomen pelvis w con* [id number] IMPRESSION: Negative for acute abdominopelvic pathology. COMMENTS: Consistent with the [employer]'s Incidental Findings Committee white paper (J Am Asya Radiol 2018): Any incidental renal lesion less than 1 cm or classified as too small to characterize, or any incidental cystic renal lesion characterized as simple-appearing, is likely benign. No follow-up imaging is recommended for these lesions per consensus recommendations based on imaging criteria. Radiation Dose CTDIVOL = (mGy): DLP = 961.83 (mGy-cm) Dictated By: Arash Flores Signed By: Arash Flores Signed Date/Time: 12/03/202339 DD/ Discharge Plan Discharge Patient Disposition: Home Clinical Impression: Abdominal pain Qualifiers: Abdominal location: epigastric Qualified Code(s): R10.13 - Epigastric pain Condition: Stable Prescriptions: New hydrocodone-acetaminophen 5-325 mg tablet 1 tab PO Q6H PRN (Reason: pain) Qty: 14 RF: 0 ondansetron 4 mg tablet,disintegrating 4 mg PO Q6H PRN (Reason: nausea and vomiting) Qty: 14 RF: 0 No Action fluoxetine [Prozac] 20 mg capsule 20 mg PO DAILY Qty: 30 RF: 2 mirtazapine 15 mg tablet 15 mg PO .HS Qty: 30 RF: 2 ropinirole 1 mg tablet 3 mg PO .HS Qty: 90 RF: 2 tramadol [Ultram] 50 mg Tablet 50 mg PO Q6H PRN (Reason: Pain) RF: 0 polyethylene glycol 3350 [Miralax] 17 gram/dose powder 17 g PO DAILY Qty: 510 RF: 0 famotidine [Pepcid] 20 mg tablet 20 mg PO BID Qty: 20 RF: 0 lisinopril 20 mg tablet 20 mg PO DAILY RF: 0 Zofran 4 mg tablet 4 mg PO Q8H Qty: 30 RF: 0 aspirin 325 mg tablet 325 mg PO DAILY PRN (Reason: fever or pain) RF: 0 ibuprofen 200 mg tablet 600 mg PO DAILY PRN (Reason: fever or pain) RF: 0 Discharge Orders: Discharge ED (Routine); Ordered 12/03/20 Ordered By: Teresa Baer Discharge Diet: Advance as tolerated Discharge Activity: Resume usual activity Patient Instructions: Abdominal Pain (ED), Opioid Safety Coding Level of Care Code ED [employer] for Billy Fwkavon Exam Comprehensive
[2020-12-03 23:59] VITALS: BP 116/78; PULSE 67; RESP 14; O2SAT 96
== END 2020-12-04 | disposition home or self-care (01) ==
PROVIDERS: Emergency Provider Emergency Medicine
DX: R10.13 Epigastric pain (principal); Z79.82 Long term (current) use of aspirin; I10 Essential (primary) hypertension; F17.220 Nicotine dependence, chewing tobacco, uncomplicated
CPT/HCPCS: 36415; 74177; 80053; 83690; 85025; 96361; 96374; 96375; 99284; J1170; J2405; J7030; Q9967

== ENCOUNTER 2020-12-04 17:47 | Emergency (ER) | payer SELFPAY ==
[2020-12-04 18:33] VITALS: BP 128/84; PULSE 99; RESP 16; TEMP 36.9; O2SAT 98; BMI 20.3
[2020-12-04 19:48] VITALS: BP 156/99; PULSE 90; RESP 12; O2SAT 97
--- NOTE | 2020-12-04 19:50 | W.ED.ABDPA2 ---
HPI - Abdominal Pain General: Chief Complaint: Abdominal Pain Stated Complaint: ABD PAIN/UNABLE TO EAT Time Seen by Provider: 12/04/20 19:40 Source: patient Mode of arrival: ambulatory Limitations: no limitations History of Present Illness: HPI narrative: 50-year-old male who states he has been having ongoing abdominal pain issues with his for months and states is been worse over the last 3 to 4 days. He states been having epigastric pain. He states he used to do with chronic constipation and was on pain medicines since been off his tramadol for 2 weeks and states he is not having constipation any longer. He was seen here last night had a normal CT scan. He states that he has felt no improvement today. Denies any vomiting denies any fevers. Denies any worsening improving factors. Associated Symptoms: Reports nausea; Denies chills, dysuria and fever(s) Review of Systems Const: Denies: fever(s), chills, body aches or change in appetite Eyes: Denies: blurry vision or eye discomfort ENMT: Denies: throat pain or dental pain Card: Denies: chest pain Resp: Denies: dyspnea GI: Reports: abdominal pain and nausea : Denies: dysuria Musc: Denies: neck pain or back pain Skin/Breast: Denies: rash Neuro: Denies: headache(s) Psych: Denies: depression Jerome/Lymph: Denies: easy bruising All/Imm: Denies: urticaria PFSH ED PFSH: Medical History Chronic low back pain Hypertension RLS (restless legs syndrome) Surgical History H/O rotator cuff surgery Left - 1989 History of lumbar laminectomy L5-S1 in 2017 History of tonsillectomy Family History Father Parkinson disease Other CAD (coronary artery disease) Stroke Social History Smoking and tobacco status: current every day smoker smokeless tobacco Smokeless tobacco user: chewing tobacco Smokeless tobacco details: Can lasts 2- 2 1/2 days Quit status (tobacco): has tried quititng Number of times tried to quit tobacco: 3 Second hand smoke exposure: Yes Alcohol intake: never Physical Exam Const: COMMON NORMALS: no acute distress, patient oriented x3 and healthy appearing HENMT: COMMON NORMALS: normocephalic and atraumatic HEAD & SCALP: normocephalic and atraumatic Eye: COMMON NORMALS: Equal, round and reactive pupils present and EOMs intact bilaterally PUPIL: Yes Equal, round and reactive pupils present Neck/C-Spine: COMMON NORMALS: full ROM and supple Chest: COMMONS NORMALS: normal inspection of the chest and normal palpation of entire chest wall Resp: COMMON NORMALS: normal respiratory effort, No retractions, No use of accessory muscles and clear to auscultation bilaterally AUSCULTATION: clear to auscultation bilaterally Cardio: COMMON NORMALS: regular rate, regular rhythm and No murmurs present (Cardio) RATE: regular rate RHYTHM: regular rhythm GI: COMMON NORMALS: Normal to inspection, nondistended, normoactive bowel sounds present, Soft to palpation, non-tender and no masses PALPATION: Yes Soft to palpation Extremity: COMMON NORMALS: normal to inspection and full ROM Neuro: COMMON NORMALS: patient oriented x3, moves all extremities and no focal motor deficits Psych: COMMON NORMALS: mental status grossly normal, Normal thought process present and cooperative THOUGHT PROCESS: Normal thought process present Skin: COMMON NORMALS: no rashes or lesions noted and no wounds GENERAL SKIN EXAM: no rashes or lesions noted Course Vital Signs: Vital signs: Vital Signs Temperature 98.4 F 12/04/20 21:41 Pulse Rate 94 12/04/20 21:41 Respiratory Rate 16 12/04/20 21:41 Blood Pressure 130/79 12/04/20 21:41 Pulse Oximetry 96 12/04/20 21:41 MDM - Abdominal Pain MDM Narrative: Medical decision making narrative: Patient presents with abdominal pain is well-appearing here. Repeat CT is normal lab work is all normal his lipase is went back to normal range. We will get him follow-up with surgery and start him on Bentyl and Reglan. He is to follow-up with Dr. Escobar and return if worsening. Lab Data: Labs: Lab Results 12/04/20 12/04/20 12/04/20 Range/Units 14:50 14:50 19:54 WBC 14.3 H (4.0-10.0) 10^3/ uL RBC 4.67 (4.1-5.3) 10^6/u L Hgb 14.3 (11.7-16.6) g/dL Hct 42.3 (42.0-52.0) % MCV 90.6 (80-94) fl MCH 30.6 (28.0-34.0) pg MCHC 33.8 (30.0-36.0) g/dL RDW 13.1 (12.1-15.1) % Plt Count 216 (130-400) 10^3/c mm MPV 11.0 H (7.4-10.4) fL Neut % (Auto) 84.7 % Lymph % (Auto) 5.2 % Corson % (Auto) 9.5 % Eos % (Auto) 0.0 % Baso % (Auto) 0.2 % Neut # (Auto) 12.10 H (1.8-7.7) 10^3/u L Lymph # (Auto) 0.7 L (0.8-4.8) 10^3/u L Corson # (Auto) 1.4 H (0.2-0.9) 10^3/u L Eos # (Auto) 0.0 (0.0-0.8) 10^3/u L Baso # (Auto) 0.0 (0.0-0.1) 10^3/u L Nucleated RBC % (a uto) 0 % Nucleated RBCs # 0.0 /100WBC Sodium 138 (136-145) mmol/L Potassium 4.3 (3.5-5.1) mmol/L Chloride 101 (98-107) mmol/L Carbon Dioxide 24 (22-29) mmol/L Anion Gap 17.3 (5-19) BUN 10 (6-20) mg/dL Creatinine 0.9 (0.7-1.2) mg/dL GFR Calculation 90.1 (90-130) mL/min Glucose 116 H (65-115) mg/dL Calculated Osmolal ity 286 (285-295) mOsm/k g Calcium 9.1 (8.5-10.5) mg/dL Total Bilirubin 0.3 (0.15-1.2) mg/dL AST 20 (0-40) U/L ALT 31 (0-41) U/L Alkaline Phosphata se 56 (40-130) IU/L Total Protein 7.5 (6.6-8.7) g/dL Albumin 4.6 (3.5-5.2) g/dL Globulin 2.9 (1.3-4.6) g/dL Lipase 35 (13-60) U/L Urine Color (Yellow) Urine Appearance (CLEAR) Urine pH (5-7) Ur Specific Gravit y (1.005-1.030) Urine Protein (Negative) Urine Glucose (UA) (Normal) Urine Ketones (Negative) Urine Blood (Negative) Urine Nitrate (Negative) Urine Bilirubin (Negative) Urine Urobilinogen (Negative) mg/dL Ur Leukocyte Kathryn ase (Negative) Urine RBC Urine WBC (0-5) /hpf Ur Squamous Epith Cells Calcium Oxalate Cr ystal /hpf Amorphous Sediment Urine Bacteria (NONE) /hpf Coarse Granular Ca sts /lpf Urine Mucus /hpf Salicylates < 0.3 L (3-10) mg/dL Urine Opiates Scre en (Negative) ng/mL Acetaminophen < 5.0 L (10-30) ug/mL Ur Barbiturates Sc reen (Negative) ng/mL Ur Phencyclidine S crn (Negative) ng/mL Ur Amphetamines Sc reen (Negative) ng/mL U Benzodiazepines Scrn (Negative) ng/mL Urine Cocaine Scre en (Negative) ng/mL U Marijuana (THC) Screen (Negative) ng/mL Ethyl Alcohol < 10 (0-10) mg/dL 12/04/20 12/04/20 Range/Units 20:24 20:24 WBC (4.0-10.0) 10^3/ uL RBC (4.1-5.3) 10^6/u L Hgb (11.7-16.6) g/dL Hct (42.0-52.0) % MCV (80-94) fl MCH (28.0-34.0) pg MCHC (30.0-36.0) g/dL RDW (12.1-15.1) % Plt Count (130-400) 10^3/c mm MPV (7.4-10.4) fL Neut % (Auto) % Lymph % (Auto) % Corson % (Auto) % Eos % (Auto) % Baso % (Auto) % Neut # (Auto) (1.8-7.7) 10^3/u L Lymph # (Auto) (0.8-4.8) 10^3/u L Corson # (Auto) (0.2-0.9) 10^3/u L Eos # (Auto) (0.0-0.8) 10^3/u L Baso # (Auto) (0.0-0.1) 10^3/u L Nucleated RBC % (a uto) % Nucleated RBCs # /100WBC Sodium (136-145) mmol/L Potassium (3.5-5.1) mmol/L Chloride (98-107) mmol/L Carbon Dioxide (22-29) mmol/L Anion Gap (5-19) BUN (6-20) mg/dL Creatinine (0.7-1.2) mg/dL GFR Calculation (90-130) mL/min Glucose (65-115) mg/dL Calculated Osmolal ity (285-295) mOsm/k g Calcium (8.5-10.5) mg/dL Total Bilirubin (0.15-1.2) mg/dL AST (0-40) U/L ALT (0-41) U/L Alkaline Phosphata se (40-130) IU/L Total Protein (6.6-8.7) g/dL Albumin (3.5-5.2) g/dL Globulin (1.3-4.6) g/dL Lipase (13-60) U/L Urine Color Straw (Yellow) Urine Appearance Hazy A (CLEAR) Urine pH 5 (5-7) Ur Specific Gravit y 1.020 (1.005-1.030) Urine Protein 1+ H (Negative) Urine Glucose (UA) Trace H (Normal) Urine Ketones Negative (Negative) Urine Blood Neg (Negative) Urine Nitrate Negative (Negative) Urine Bilirubin 1+ H (Negative) Urine Urobilinogen Norm (Negative) mg/dL Ur Leukocyte Kathryn ase Negative (Negative) Urine RBC Not Reportable Urine WBC 0-4 H (0-5) /hpf Ur Squamous Epith Cells Not Reportable Calcium Oxalate Cr ystal 0-4 H /hpf Amorphous Sediment Not Reportable Urine Bacteria 1+ H (NONE) /hpf Coarse Granular Ca sts 0-4 H /lpf Urine Mucus 1+ /hpf Salicylates (3-10) mg/dL Urine Opiates Scre en Positive H (Negative) ng/mL Acetaminophen (10-30) ug/mL Ur Barbiturates Sc reen Negative (Negative) ng/mL Ur Phencyclidine S crn Negative (Negative) ng/mL Ur Amphetamines Sc reen Negative (Negative) ng/mL U Benzodiazepines Scrn Negative (Negative) ng/mL Urine Cocaine Scre en Negative (Negative) ng/mL U Marijuana (THC) Screen Positive H (Negative) ng/mL Ethyl Alcohol (0-10) mg/dL Imaging Data ^: CT Abd/Pel: Attestation: I personally reviewed and interpreted this imaging study as follows: Radiologist's impression: [email or web address] [address] [address] Scan Report Signed Patient: Suhail Cao Unit #: [id number] : 1970 Age/Sex: 50 / M ADM Date: 12/04/20 Loc: ER Room/Bed: Attending Dr: Ordering Provider/Ordering MD: Teresa Baer MD Date of Service: 12/04/20 Procedure(s): CT abdomen pelvis w con* [id number] Accession Number(s): [id number] Report Number: [id number] PROCEDURE INFORMATION: Exam: CT Abdomen And Pelvis With Contrast Exam date and time: 12/04/2020 8:16 PM Age: 50 years old Clinical indication: Nausea and vomiting; Abdominal pain; Localized; Upper; Additional info: Abd pain TECHNIQUE: Imaging protocol: Computed tomography of the abdomen and pelvis with contrast. Radiation optimization: All CT scans at this facility use at least one of these dose optimization techniques: automated exposure control; mA and/or kV adjustment per patient size (includes targeted exams where dose is matched to clinical indication); or iterative reconstruction. Contrast material: OMNI 300; Contrast volume: 95 ml; Contrast route: INTRAVENOUS (IV); COMPARISON: CT abdomen pelvis w con* [id number] 12/03/2020 10:46 PM RADIATION DOSE METRICS: Total DLP (mGy-cm): 1018.22 FINDINGS: Lungs: Lung bases are clear. Liver: The liver is normal. Gallbladder and bile ducts: There is high attenuation material within the gallbladder lumen consistent with sludge. There is no intrahepatic or extrahepatic bile duct dilation. Pancreas: The pancreas is unremarkable. Spleen: The spleen is unremarkable. Adrenal glands: The adrenal glands are unremarkable. Kidneys and ureters: There is a nonobstructive stone in the left kidney. There is no hydronephrosis or ureteral dilation. The right kidney and ureter are unremarkable. Stomach and bowel: The stomach is unremarkable. The small bowel is nondilated. The colon is unremarkable. Appendix: The appendix is normal. Intraperitoneal space: There is no free air or significant intraperitoneal free fluid. Vasculature: The aorta is unremarkable. There is no aneurysm. The portal, splenic and superior mesenteric veins are patent. Lymph nodes: There is no lymphadenopathy in the retroperitoneum, mesentery, pelvis or inguinal regions. Urinary bladder: The urinary bladder is decompressed, preventing meaningful evaluation of wall thickness. Reproductive: The prostate and seminal vesicles are unremarkable. Bones/joints: Intact posterolateral/interbody fusion at L5-S1. The lumbar spine is otherwise unremarkable. The pelvis and proximal femora are intact. Soft tissues: The abdominal wall is intact. CT/CT abdomen pelvis w con* [id number] IMPRESSION: No acute findings. Radiation Dose CTDIVOL = (mGy): DLP = 1018.22 (mGy-cm) Dictated By: Shiraz Contreras MD Signed By: Shiraz Contreras MD Signed Date/Time: 12/04/202053 Discharge Plan Discharge Patient Disposition: Home Clinical Impression: Abdominal pain Qualifiers: Abdominal location: generalized Qualified Code(s): R10.84 - Generalized abdominal pain Condition: Stable Prescriptions: New Reglan 10 mg tablet 10 mg PO Q6H PRN (Reason: nausea and vomiting) Qty: 20 RF: 0 dicyclomine 20 mg tablet 20 mg PO TID Qty: 20 RF: 0 No Action fluoxetine [Prozac] 20 mg capsule 20 mg PO DAILY Qty: 30 RF: 2 mirtazapine 15 mg tablet 15 mg PO .HS Qty: 30 RF: 2 ropinirole 1 mg tablet 3 mg PO .HS Qty: 90 RF: 2 tramadol [Ultram] 50 mg Tablet 50 mg PO Q6H PRN (Reason: Pain) RF: 0 polyethylene glycol 3350 [Miralax] 17 gram/dose powder 17 g PO DAILY Qty: 510 RF: 0 famotidine [Pepcid] 20 mg tablet 20 mg PO BID Qty: 20 RF: 0 lisinopril 20 mg tablet 20 mg PO DAILY RF: 0 Zofran 4 mg tablet 4 mg PO Q8H Qty: 30 RF: 0 aspirin 325 mg tablet 325 mg PO DAILY PRN (Reason: fever or pain) RF: 0 ibuprofen 200 mg tablet 600 mg PO DAILY PRN (Reason: fever or pain) RF: 0 hydrocodone-acetaminophen 5-325 mg tablet 1 tab PO Q6H PRN (Reason: pain) Qty: 14 RF: 0 ondansetron 4 mg tablet,disintegrating 4 mg PO Q6H PRN (Reason: nausea and vomiting) Qty: 14 RF: 0 Discharge Orders: Discharge ED (Routine); Ordered 12/04/20 Ordered By: Teresa Baer Referrals: Kj Escobar MD [Physician] - 1-3 days Discharge Diet: Advance as tolerated Discharge Activity: Resume usual activity Patient Instructions: Abdominal Pain (ED) Coding Level of Care Code ED Reproductive Healthcare Assistant for g Fwd Exam Comprehensive
[2020-12-04 20:00] VITALS: BP 152/89; PULSE 91; RESP 16; O2SAT 97
[2020-12-04 20:05] LABS: Basophils % 0.2 %; Hematocrit 42.3 % (42.0-52.0); Hemoglobin 14.3 g/dL (11.7-16.6); Lymphocytes # 0.7 10^3/uL (0.8-4.8); Lymphocytes % 5.2 %; Mean Corpuscular HGB Conc 33.8 g/dL (30.0-36.0); Mean Corpuscular Hemoglobin 30.6 pg (28.0-34.0); Mean Corpuscular Volume 90.6 fl (80-94); Monocytes # 1.4 10^3/uL (0.2-0.9); Monocytes % 9.5 %; Neutrophils % 84.7 %; Nucleated Red Blood Cells % 0 %; Platelet Count 216 10^3/cmm (130-400); Red Blood Count 4.67 10^6/uL (4.1-5.3); Red Cell Distribution Width 13.1 % (12.1-15.1); White Blood Count 14.3 10^3/uL (4.0-10.0)
[2020-12-04] MEDS: diphenhydrAMINE 50 mg/mL SDV 1mL IVP (20:06)
[2020-12-04] MEDS: metoclopramide 5 mg/mL SDV 2 mL 10 MG IVP (20:06)
[2020-12-04] MEDS: sodium chloride 0.9% 1,000 ML 999 ML IV (20:07)
--- NOTE | 2020-12-04 20:16 | CTR_ITS ---
PROCEDURE INFORMATION: Exam: CT Abdomen And Pelvis With Contrast Exam date and time: 12/04/2020 8:16 PM Age: 50 years old Clinical indication: Nausea and vomiting; Abdominal pain; Localized; Upper; Additional info: Abd pain TECHNIQUE: Imaging protocol: Computed tomography of the abdomen and pelvis with contrast. Radiation optimization: All CT scans at this facility use at least one of these dose optimization techniques: automated exposure control; mA and/or kV adjustment per patient size (includes targeted exams where dose is matched to clinical indication); or iterative reconstruction. Contrast material: OMNI 300; Contrast volume: 95 ml; Contrast route: INTRAVENOUS (IV); COMPARISON: CT abdomen pelvis w con* [id number] 12/03/2020 10:46 PM RADIATION DOSE METRICS: Total DLP (mGy-cm): 1018.22 FINDINGS: Lungs: Lung bases are clear. Liver: The liver is normal. Gallbladder and bile ducts: There is high attenuation material within the gallbladder lumen consistent with sludge. There is no intrahepatic or extrahepatic bile duct dilation. Pancreas: The pancreas is unremarkable. Spleen: The spleen is unremarkable. Adrenal glands: The adrenal glands are unremarkable. Kidneys and ureters: There is a nonobstructive stone in the left kidney. There is no hydronephrosis or ureteral dilation. The right kidney and ureter are unremarkable. Stomach and bowel: The stomach is unremarkable. The small bowel is nondilated. The colon is unremarkable. Appendix: The appendix is normal. Intraperitoneal space: There is no free air or significant intraperitoneal free fluid. Vasculature: The aorta is unremarkable. There is no aneurysm. The portal, splenic and superior mesenteric veins are patent. Lymph nodes: There is no lymphadenopathy in the retroperitoneum, mesentery, pelvis or inguinal regions. Urinary bladder: The urinary bladder is decompressed, preventing meaningful evaluation of wall thickness. Reproductive: The prostate and seminal vesicles are unremarkable. Bones/joints: Intact posterolateral/interbody fusion at L5-S1. The lumbar spine is otherwise unremarkable. The pelvis and proximal femora are intact. Soft tissues: The abdominal wall is intact. CT/CT abdomen pelvis w con* [id number] IMPRESSION: No acute findings. Radiation Dose CTDIVOL = (mGy): DLP = 1018.22 (mGy-cm)
[2020-12-04 20:26] LABS: Alanine Aminotransferase 31 U/L (0-41); Albumin Level 4.6 g/dL (3.5-5.2); Alkaline Phosphatase 56 IU/L (40-130); Anion Gap 17.3 (5-19); Aspartate Amino Transferase 20 U/L (0-40); Blood Urea Nitrogen 10 mg/dL (6-20); Calcium 9.1 mg/dL (8.5-10.5); Carbon Dioxide 24 mmol/L (22-29); Chloride 101 mmol/L (98-107); Globulin 2.9 g/dL (1.3-4.6); Glomerular Filtration Rate 90.1 mL/min (90-130); Glucose 116 mg/dL (65-115); Lipase 35 U/L (13-60); Osmolality Calculated 286 mOsm/kg (285-295); Potassium 4.3 mmol/L (3.5-5.1); Sodium 138 mmol/L (136-145); Total Bilirubin 0.3 mg/dL (0.15-1.2); Total Protein 7.5 g/dL (6.6-8.7)
[2020-12-04] MEDS: iohexol 300 mg/mL 100 mL Btl IV (20:29)
[2020-12-04 20:30] LABS: Charge for UA Resulting for Rev
[2020-12-04 20:58] LABS: Add Urine Microscopic? YES; Bilirubin Urine 1+ (Negative); Blood Urine Neg (Negative); Glucose Urine UA Trace (Normal); Ketones Urine Negative (Negative); Leukocyte Esterase Urine Negative (Negative); Nitrate Urine Negative (Negative); Protein Urine 1+ (Negative); Urine Appearance Hazy (CLEAR); Urine Color Straw (Yellow); Urobilinogen Urine Norm (Negative); WBC Urine 0-4 /hpf (0-5); pH Urine 5 (5-7)
[2020-12-04 20:59] LABS: Calcium Oxalate Crystals Urine 0-4 /hpf; Coarse Granular Casts Urine 0-4 /lpf; Mucus Urine 1+ /hpf
[2020-12-04 21:00] LABS: Add Urine Culture? No; Bacteria Urine 1+ /hpf
[2020-12-04 21:05] LABS: Amphetamines Screen Urine Negative (Negative); Barbiturates Screen Urine Negative (Negative); Benzodiazepines Screen Urine Negative (Negative); Cocaine Screen Urine Negative (Negative); Opiate Screen Urine Positive (Negative); PCP Screen Urine Negative (Negative); THC Screen Urine Positive (Negative)
[2020-12-04 21:07] LABS: Acetaminophen < 5.0 ug/mL (10-30); Alcohol Level < 10 mg/dL (0-10); Salicylate < 0.3 mg/dL (3-10)
[2020-12-04 21:10] VITALS: BP 119/82; PULSE 85; O2SAT 96
[2020-12-04 21:41] VITALS: BP 130/79; PULSE 94; RESP 16; TEMP 36.9; O2SAT 96
--- NOTE | 2020-12-05 11:31 | DCPLANNER ---
Addendum entered by Sherrie Alan 02/12/21 11:24: manager commercial sales was told that clinic was unable to reach patient to schedule an appointment. Original Note: manager commercial sales had message to schedule a follow up appointment for patient with Dr. Escobar. manager commercial sales faxed patients information to the office of Dr. Escobar. Patients information will be reviewed, clinic will call patient with appointment information.
== END 2020-12-04 21:35 | disposition home or self-care (01) ==
PROVIDERS: Emergency Provider Emergency Medicine
DX: R10.84 Generalized abdominal pain (principal); Z79.82 Long term (current) use of aspirin; I10 Essential (primary) hypertension; F17.220 Nicotine dependence, chewing tobacco, uncomplicated
CPT/HCPCS: 74177; 80053; 80306; 80307; 81001; 81003; 83690; 85025; 96361; 96374; 96375; 99284; J1200; J2765; J7030; Q9967

== ENCOUNTER → 2021-03-23 13:05 | Outpatient (BNVA) | payer OTHER, SELFPAY | PROVIDERS: Visit Provider Nurse Practitioner Family | DX: Z20.822 Contact with and (suspected) exposure to COVID-19 (principal); Z20.828 Contact with and (suspected) exposure to other viral communicable diseases | CPT/HCPCS: 87635 ==

== ENCOUNTER 2021-07-21 20:44 | Emergency (ER) | payer SELFPAY ==
[2021-07-21] VITALS (9 sets, daily range): BP systolic 92–154; BP diastolic 67–107; PULSE 79–106; RESP 12–93; TEMP 36.2; O2SAT 94–97; BMI 20.3
--- NOTE | 2021-07-21 20:53 | ECG_ITS ---
[facility] Test Date: 2021-07-21 Pat Name: Suhail Cao Department: Room: Gender: Male Rn Urgent Care: : 1970 Requested By: Teresa Baer Order Number: [id number] José MD: [place] Jose M.D. Measurements Intervals [place] Rate: 110 P: 75 IA: 136 QRS: 83 QRSD: 100 T: 64 QT: 301 QTc: 408 Interpretive Statements SINUS TACHYCARDIA POSSIBLE LEFT ATRIAL ENLARGEMENT [-0.1mV P-WAVE IN V1/V2] INCOMPLETE RIGHT BUNDLE BRANCH BLOCK [90+ ms QRS DURATION, TERMINAL R IN V1/V2, 40+ ms S IN I/aVL/V4/V5/V6] ABNORMAL RHYTHM ECG No previous ECG available for comparison Electronically Signed On 07-21-2021 23:18:19 CDT by [place] Jose M.D. [id number] f
--- NOTE | 2021-07-21 21:02 | XRR_ITS ---
PROCEDURE INFORMATION: Exam: XR Chest Exam date and time: 07/21/2021 9:23 PM Age: 50 years old Clinical indication: Chest wall pain; Additional info: Cp TECHNIQUE: Imaging protocol: XR of the chest. Views: 1 view. COMPARISON: CT abdomen pelvis w con* [id number] 12/04/2020 8:26 PM FINDINGS: Lungs: Unremarkable. No consolidation. Pleural spaces: Unremarkable. No pleural effusion. No pneumothorax. Heart/Mediastinum: Unremarkable. No cardiomegaly. Bones/joints: Unremarkable. XR/XR chest 1V portable [id number] IMPRESSION: No acute findings.
[2021-07-21 21:11] LABS: Basophils % 0.3 %; Eosinophils % 0.1 %; Hematocrit 50.1 % (42.0-52.0); Hemoglobin 17.3 g/dL (11.7-16.6); Lymphocytes # 1.7 10^3/uL (0.8-4.8); Lymphocytes % 13.6 %; Mean Corpuscular HGB Conc 34.5 g/dL (30.0-36.0); Mean Corpuscular Hemoglobin 30.9 pg (28.0-34.0); Mean Corpuscular Volume 89.6 fl (80-94); Mean Platelet Volume 10.9 fL (7.4-10.4); Monocytes # 1.3 10^3/uL (0.2-0.9); Monocytes % 10.7 %; Neutrophils # 9.21 10^3/uL (1.8-7.7); Nucleated Red Blood Cells % 0 %; Platelet Count 240 10^3/cmm (130-400); Red Blood Count 5.59 10^6/uL (4.1-5.3); Red Cell Distribution Width 12.4 % (12.1-15.1); White Blood Count 12.3 10^3/uL (4.0-10.0)
--- NOTE | 2021-07-21 21:11 | W.ED.CHESTPA ---
HPI - Chest Pain General: Chief Complaint: Chest Pain Stated Complaint: sob, chest pain Time Seen by Provider: 07/21/21 21:01 Source: patient Mode of arrival: ambulatory Limitations: no limitations History of Present Illness: 50-year-old male who states that he has been having chest pain shortness of breath since 4 PM. He states that he has just been having dyspnea with any type of exertion with some diffuse pain he states that a mild cough denies any fevers no heart history no long history denies smoking. Associated symptoms: Deny abdominal pain, dyspnea, fever(s), nausea or vomiting Review of Systems Const: Denies: fever(s), chills, body aches or change in appetite Eyes: Denies: blurry vision or eye discomfort ENMT: Denies: throat pain or dental pain Card: Reports: chest pain Resp: Denies: dyspnea GI: Denies: abdominal pain, nausea, vomiting or diarrhea : Denies: dysuria Musc: Denies: neck pain or back pain Skin/Breast: Denies: rash Neuro: Denies: headache(s) Psych: Denies: depression Jerome/Lymph: Denies: easy bruising All/Imm: Denies: urticaria PFSH ED PFSH: Medical History Chronic low back pain Hypertension Psychiatric care RLS (restless legs syndrome) Surgical History H/O rotator cuff surgery Left - 1989 History of lumbar laminectomy L5-S1 in 2017 History of tonsillectomy Family History Father Parkinson disease Other CAD (coronary artery disease) Stroke Social History Smoking and tobacco status: current every day smoker smokeless tobacco Smokeless tobacco user: chewing tobacco Smokeless tobacco details: Can lasts 2- 2 1/2 days Quit status (tobacco): has tried quititng Number of times tried to quit tobacco: 3 Second hand smoke exposure: Yes Alcohol intake: never Physical Exam Const: COMMON NORMALS: no acute distress, patient oriented x3 and healthy appearing HENMT: COMMON NORMALS: normocephalic and atraumatic HEAD & SCALP: normocephalic and atraumatic Eye: COMMON NORMALS: Equal, round and reactive pupils present and EOMs intact bilaterally PUPIL: Yes Equal, round and reactive pupils present Neck/C-Spine: COMMON NORMALS: full ROM and supple Chest: COMMONS NORMALS: normal inspection of the chest and normal palpation of entire chest wall Resp: COMMON NORMALS: normal respiratory effort, No retractions, No use of accessory muscles and clear to auscultation bilaterally AUSCULTATION: clear to auscultation bilaterally Cardio: COMMON NORMALS: regular rate, regular rhythm and No murmurs present (Cardio) RATE: regular rate and tachycardic RHYTHM: regular rhythm GI: COMMON NORMALS: Normal to inspection, nondistended, normoactive bowel sounds present, Soft to palpation, non-tender and no masses PALPATION: Yes Soft to palpation Extremity: COMMON NORMALS: normal to inspection and full ROM Neuro: COMMON NORMALS: patient oriented x3, moves all extremities and no focal motor deficits Psych: COMMON NORMALS: mental status grossly normal, Normal thought process present and cooperative THOUGHT PROCESS: Normal thought process present Skin: COMMON NORMALS: no rashes or lesions noted and no wounds GENERAL SKIN EXAM: no rashes or lesions noted Course Vital Signs: Vital signs: Vital Signs Temperature 97.2 F L 07/21/21 20:58 Pulse Rate 79 07/21/21 23:20 Respiratory Rate 93 H 07/21/21 23:20 Blood Pressure 127/91 07/21/21 23:20 Pulse Oximetry 97 07/21/21 23:20 MDM - Chest Pain Medical Decision Making Patient presents for chest pain that is since resolved. His initial repeat troponins here are normal EKGs are normal as well patient's D-dimer is negative no signs of pulm embolism he is well-appearing here I feel he is stable for discharge informed him he does need to follow-up with his PCP this week and have a scheduled outpatient stress test return if he has any more chest pain he understands agrees to plan. Lab Data : 07/21/21 21:04 07/21/21 21:04 Radiology Impressions Chest X-Ray 07/21/21 21:02 IMPRESSION: No acute findings. Laboratory Results WBC 12.3 10^3/uL (4.0-10.0) H 07/21/21 21:04 RBC 5.59 10^6/uL (4.1-5.3) H 07/21/21 21:04 Hgb 17.3 g/dL (11.7-16.6) H 07/21/21 21:04 Hct 50.1 % (42.0-52.0) 07/21/21 21:04 MCV 89.6 fl (80-94) 07/21/21 21:04 MCH 30.9 pg (28.0-34.0) 07/21/21 21:04 MCHC 34.5 g/dL (30.0-36.0) 07/21/21 21:04 RDW 12.4 % (12.1-15.1) 07/21/21 21:04 Plt Count 240 10^3/cmm (130-400) 07/21/21 21:04 MPV 10.9 fL (7.4-10.4) H 07/21/21 21:04 Neut % (Auto) 75.0 % 07/21/21 21:04 Lymph % (Auto) 13.6 % 07/21/21 21:04 [place] % (Auto) 10.7 % 07/21/21 21:04 Eos % (Auto) 0.1 % 07/21/21 21:04 Baso % (Auto) 0.3 % 07/21/21 21:04 Neut # (Auto) 9.21 10^3/uL (1.8-7.7) H 07/21/21 21:04 Lymph # (Auto) 1.7 10^3/uL (0.8-4.8) 07/21/21 21:04 [place] # (Auto) 1.3 10^3/uL (0.2-0.9) H 07/21/21 21:04 Eos # (Auto) 0.0 10^3/uL (0.0-0.8) 07/21/21 21:04 Baso # (Auto) 0.0 10^3/uL (0.0-0.1) 07/21/21 21:04 Nucleated RBC % (auto) 0 % 07/21/21 21:04 Nucleated RBCs # 0.0 /100WBC 07/21/21 21:04 PT 13.60 SECONDS (12.1-14.9) 07/21/21 21:04 INR 1.01 (0.8-1.2) 07/21/21 21:04 D-Dimer 0.41 ug/mIFEU (0-0.59) 07/21/21 21:04 Sodium 137 mmol/L (136-145) 07/21/21 21:04 Potassium 3.4 mmol/L (3.5-5.1) L 07/21/21 21:04 Chloride 99 mmol/L (98-107) 07/21/21 21:04 Carbon Dioxide 24 mmol/L (22-29) 07/21/21 21:04 Anion Gap 17.4 (5-19) 07/21/21 21:04 BUN 21 mg/dL (6-20) H 07/21/21 21:04 Creatinine 1.1 mg/dL (0.7-1.2) 07/21/21 21:04 GFR Calculation 71.4 mL/min (90-130) L 07/21/21 21:04 Glucose 148 mg/dL (65-115) H 07/21/21 21:04 Calculated Osmolality 290 mOsm/kg (285-295) 07/21/21 21:04 Calcium 8.7 mg/dL (8.5-10.5) 07/21/21 21:04 Total Bilirubin 0.4 mg/dL (0.15-1.2) 07/21/21 21:04 AST 16 U/L (0-40) 07/21/21 21:04 ALT 15 U/L (0-41) 07/21/21 21:04 Alkaline Phosphatase 57 IU/L (40-130) 07/21/21 21:04 Troponin T Baseline 18 ng/L (0-15) H 07/21/21 21:04 Troponin T 120 Minute 12.99 ng/L (0-15) 07/21/21 22:50 Delta Troponin T -5.01 ABS# (0-10) L 07/21/21 22:50 NT-Pro-B Natriuret Pep 42 pg/mL (0-125) 07/21/21 21:04 Total Protein 7.5 g/dL (6.6-8.7) 07/21/21 21:04 Albumin 4.8 g/dL (3.5-5.2) 07/21/21 21:04 Globulin 2.7 g/dL (1.3-4.6) 07/21/21 21:04 EKG Data EKG 1: I personally reviewed and interpreted this EKG as follows: EKG interpretation date: 07/21/21 EKG interpretation time: 20:57 Interpretation: sinus tach hr [address] or t wave abnormalities qrs 100 qtc 366 EKG 2: I personally reviewed and interpreted this EKG as follows: EKG interpretation date: 07/21/21 EKG interpretation time: 22:09 Interpretation: nsr hr [address] or t wave abnormalities qrs 106 qtc 427 Discharge Plan Discharge Patient Disposition: Home Clinical Impression: Chest pain Qualifiers: Chest pain type: unspecified Qualified Code(s): R07.9 - Chest pain, unspecified Condition: Stable Prescriptions: New ondansetron 4 mg tablet,disintegrating 4 mg PO Q6H PRN (Reason: nausea and vomiting) Qty: 14 0RF No Action bupropion HCl [Wellbutrin XL] 150 mg tablet extended release 24 hr 150 mg PO QAM Qty: 30 2RF ropinirole 1 mg tablet 4 mg PO .HS Qty: 120 0RF aspirin 325 mg tablet 325 mg PO DAILY PRN (Reason: fever or pain) 0RF Discharge Orders: Discharge ED (Routine); Ordered 07/21/21 Ordered By: Teresa Baer Discharge Diet: Advance as tolerated Discharge Activity: Resume usual activity Patient Instructions: Chest Pain (ED) Coding Level of Care Code ED Commercial Green Building Designer for Chg Fwd Exam Comprehensive
[2021-07-21] MEDS: ondansetron 2 mg/ML SDV 2 mL 4 MG IVP ×2 (21:14→22:57)
[2021-07-21] MEDS: morphine 4 mg/mL SDV 1 mL IVP (21:14)
[2021-07-21 21:25] LABS: D Dimer 0.41 ug/mIFEU (0-0.59); INR 1.01 (0.8-1.2)
[2021-07-21 21:29] LABS: Troponin(5th) Baseline 18 ng/L (0-15)
[2021-07-21 21:36] LABS: Alanine Aminotransferase 15 U/L (0-41); Albumin Level 4.8 g/dL (3.5-5.2); Alkaline Phosphatase 57 IU/L (40-130); Anion Gap 17.4 (5-19); Aspartate Amino Transferase 16 U/L (0-40); Blood Urea Nitrogen 21 mg/dL (6-20); Calcium 8.7 mg/dL (8.5-10.5); Carbon Dioxide 24 mmol/L (22-29); Chloride 99 mmol/L (98-107); Globulin 2.7 g/dL (1.3-4.6); Glomerular Filtration Rate 71.4 mL/min (90-130); Glucose 148 mg/dL (65-115); NT Pro B Type Natriuretic Pept 42 pg/mL (0-125); Osmolality Calculated 290 mOsm/kg (285-295); Potassium 3.4 mmol/L (3.5-5.1); Sodium 137 mmol/L (136-145); Total Bilirubin 0.4 mg/dL (0.15-1.2); Total Protein 7.5 g/dL (6.6-8.7)
--- NOTE | 2021-07-21 23:02 | ECG_ITS ---
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 Measurements Intervals [place] Rate: 77 P: 75 WI: 136 QRS: 85 QRSD: 100 T: 69 QT: 342 QTc: 388 Interpretive Statements SINUS RHYTHM WITH SINUS ARRHYTHMIA INCOMPLETE RIGHT BUNDLE BRANCH BLOCK [90+ ms QRS DURATION, TERMINAL R IN V1/V2, 40+ ms S IN I/aVL/V4/V5/V6] Compared to ECG 07/21/2021 20:57:29 Sinus tachycardia no longer present Electronically Signed On 07-21-2021 23:20:11 CDT by [place] Jose M.D. [email or web address]/store/[id number]
[2021-07-21 23:11] LABS: Troponin 5 2HR 12.99 ng/L (0-15)
[2021-07-21 23:13] LABS: Troponin 5 2HR Delta -5.01 ABS# (0-10)
== END 2021-07-21 23:37 | disposition home or self-care (01) ==
PROVIDERS: Emergency Provider Emergency Medicine
DX: R07.9 Chest pain, unspecified (principal); F17.220 Nicotine dependence, chewing tobacco, uncomplicated; Z79.82 Long term (current) use of aspirin
CPT/HCPCS: 71045; 80053; 83880; 84484; 85025; 85378; 85610; 93005; 96374; 96375; 96376; 99284; J2270; J2405

== ENCOUNTER 2021-10-04 17:47 | Observation (INO) | payer SELFPAY ==
[2021-10-04 17:54] VITALS: PULSE 81; RESP 16; TEMP 36.6; O2SAT 96
--- NOTE | 2021-10-04 18:57 | ECG_ITS ---
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 Measurements Intervals [place] Rate: 39 P: 76 IN: 137 QRS: 85 QRSD: 113 T: 75 QT: 443 QTc: 358 Interpretive Statements SINUS BRADYCARDIA MODERATE INTRAVENTRICULAR CONDUCTION DELAY [110+ ms QRS DURATION] Compared to ECG 07/21/2021 22:45:11 Intraventricular conduction delay now present Sinus rhythm no longer present Sinus arrhythmia no longer present Incomplete right bundle-branch block no longer present Electronically Signed On 10-04-2021 23:34:49 CDT by Harsh De Jesus M.D. [email or web address].[email or web address]/store/[id number] f
[2021-10-04 19:04] LABS: Basophils % 0.2 %; Eosinophils # 0.1 10^3/uL (0.0-0.8); Eosinophils % 0.9 %; Hematocrit 42.8 % (42.0-52.0); Hemoglobin 14.4 g/dL (11.7-16.6); Lymphocytes # 1.8 10^3/uL (0.8-4.8); Lymphocytes % 20.8 %; Mean Corpuscular HGB Conc 33.6 g/dL (30.0-36.0); Mean Corpuscular Hemoglobin 30.6 pg (28.0-34.0); Mean Corpuscular Volume 90.9 fl (80-94); Mean Platelet Volume 11.5 fL (7.4-10.4); Monocytes # 0.9 10^3/uL (0.2-0.9); Monocytes % 9.9 %; Neutrophils # 5.83 10^3/uL (1.8-7.7); Neutrophils % 67.9 %; Nucleated Red Blood Cells % 0 %; Platelet Count 230 10^3/cmm (130-400); Red Blood Count 4.71 10^6/uL (4.1-5.3); Red Cell Distribution Width 14.9 % (12.1-15.1); White Blood Count 8.6 10^3/uL (4.0-10.0)
--- NOTE | 2021-10-04 19:13 | CTR_ITS ---
PROCEDURE INFORMATION: Exam: CT Head Without Contrast Exam date and time: 10/04/2021 7:27 PM Age: 51 years old Clinical indication: Dizziness; Additional info: Near syncoope TECHNIQUE: Imaging protocol: Computed tomography of the head without contrast. Radiation optimization: All CT scans at this facility use at least one of these dose optimization techniques: automated exposure control; mA and/or kV adjustment per patient size (includes targeted exams where dose is matched to clinical indication); or iterative reconstruction. COMPARISON: No relevant prior studies available. RADIATION DOSE METRICS: Total DLP (mGy-cm): 1040.88 FINDINGS: Brain: Normal. No hemorrhage. Unremarkable white matter. No mass effect. Cerebral ventricles: No ventriculomegaly. Paranasal sinuses: Visualized sinuses are unremarkable. No fluid levels. Mastoid air cells: Visualized mastoid air cells are well aerated. Bones/joints: Unremarkable. No acute fracture. Soft tissues: Unremarkable. CT/CT head wo con* [id number] IMPRESSION: No acute intracranial abnormality.
--- NOTE | 2021-10-04 19:27 | CTR_ITS ---
PROCEDURE INFORMATION: Exam: CTA Head With Contrast, Arteriography Exam date and time: 10/04/2021 7:52 PM Age: 51 years old Clinical indication: Dizziness and giddiness and weakness; Additional info: Headache, recurrent syncope TECHNIQUE: Imaging protocol: Computed tomographic angiography of the head with contrast. Exam focused on the arteries. 3D rendering (Not supervised by radiologist): MIP and/or 3D reconstructed images were created by the technologist. Radiation optimization: All CT scans at this facility use at least one of these dose optimization techniques: automated exposure control; mA and/or kV adjustment per patient size (includes targeted exams where dose is matched to clinical indication); or iterative reconstruction. Contrast material: OMNIPAQUE 350; Contrast volume: 90 ml; Contrast route: INTRAVENOUS (IV); COMPARISON: CT head wo con* [id number] 10/04/2021 7:27 PM RADIATION DOSE METRICS: Total DLP (mGy-cm): 511.53 FINDINGS: ANTERIOR CIRCULATION: Right internal carotid artery: Unremarkable. Intracranial segment is patent with no significant stenosis. No aneurysm. Right middle cerebral artery: Unremarkable. No occlusion or significant stenosis. No aneurysm. Right anterior cerebral artery: Unremarkable. No occlusion or significant stenosis. No aneurysm. Left internal carotid artery: Unremarkable. Intracranial segment is patent with no significant stenosis. No aneurysm. Left middle cerebral artery: Unremarkable. No occlusion or significant stenosis. No aneurysm. Left anterior cerebral artery: Unremarkable. No occlusion or significant stenosis. No aneurysm. POSTERIOR CIRCULATION: Right vertebral artery: Unremarkable. No occlusion or significant stenosis. No aneurysm. Left vertebral artery: Unremarkable. No occlusion or significant stenosis. No aneurysm. Basilar artery: Unremarkable. No occlusion or significant stenosis. No aneurysm. Right posterior cerebral artery: Unremarkable. No occlusion or significant stenosis. No aneurysm. Left posterior cerebral artery: Unremarkable. No occlusion or significant stenosis. No aneurysm. Brain: No definite mass, mass effect, or midline shift. Cerebral ventricles: No ventriculomegaly. Bones/joints: Unremarkable. No acute fracture. Soft tissues: Unremarkable. PROCEDURE INFORMATION: Exam: CTA Neck With Contrast Exam date and time: 10/04/2021 7:52 PM Age: 51 years old Clinical indication: Dizziness and giddiness and weakness; Additional info: Headache, recurrent syncope TECHNIQUE: Imaging protocol: Computed tomographic angiography of the neck with contrast. 3D rendering (Not supervised by radiologist): MIP and/or 3D reconstructed images were created by the technologist. Radiation optimization: All CT scans at this facility use at least one of these dose optimization techniques: automated exposure control; mA and/or kV adjustment per patient size (includes targeted exams where dose is matched to clinical indication); or iterative reconstruction. Contrast material: OMNIPAQUE 350; Contrast volume: 90 ml; Contrast route: INTRAVENOUS (IV); COMPARISON: CT head wo con* [id number] 10/04/2021 7:27 PM RADIATION DOSE METRICS: Total DLP (mGy-cm): 511.53 FINDINGS: Right common carotid artery: No stenosis. No dissection or occlusion. Right internal carotid artery: No stenosis of the extracranial segment. No dissection or occlusion. Right external carotid artery: No occlusion or stenosis of the origin. Left common carotid artery: No stenosis. No dissection or occlusion. Left internal carotid artery: No stenosis of the extracranial segment. No dissection or occlusion. Left external carotid artery: No occlusion or stenosis of the origin. Right vertebral artery: No stenosis. No dissection or occlusion. Left vertebral artery: No stenosis. No dissection or occlusion. Soft tissues: Normal. No significant soft tissue swelling. Bones/joints: No acute fracture. CT/CT angio headneck* [id number] IMPRESSION: No large vessel stenosis or occlusion. IMPRESSION: No stenosis or occlusion. REFERENCES: NASCET CRITERIA. The degree of internal carotid artery stenosis is based on NASCET criteria. Normal is no stenosis. Mild is less than 50% stenosis. Moderate is 50-69% stenosis. Severe is 70% to 99% stenosis. Total occlusion is no detectable patent lumen.
--- NOTE | 2021-10-04 19:31 | ED_ITS ---
HPI - General Adult General: Chief complaint: Dizziness Stated complaint: dizziness Time Seen by Provider: 10/04/21 18:57 History of Present Illness: Patient is a 51-year-old male with history of hypertension, chronic back pain, anxiety presenting to the emergency room with concerns of recurrent lightheadedness. Patient was playing golf earlier today around 2 PM when he reported feeling like his vision became significantly blurry and he almost passed out. Patient first noted symptoms upon standing up while. Patient has had 2 additional episodes of almost passing out from playing golf. Patient tells me that since this morning he has been having headache. Patient at [facility] does not have any history of headaches but denies any focal weakness in the arms or legs, facial droop, diplopia, language difficulty, slurring of speech or dysphagia. Patient denies any family history of aneurysms. Patient denies any nausea vomiting fever/chills, cough, runny nose sore throat. Patient says that the headache started this morning and has been persistent. Onset:3 episodes of syncope at 2pm Duration:three times Location:home Severity:moderate Associated symptoms: Deny chest pain, dyspnea, nausea, rash, palpitations or vomiting Review of Systems Const: Denies: fever(s) or chills Eyes: Denies: change in vision ENMT: Denies: mouth pain Card: Denies: chest pain or palpitations Resp: Denies: dyspnea or non-productive cough GI: Denies: abdominal pain, nausea, vomiting or diarrhea : Denies: dysuria Musc: Denies: extremity pain Skin/Breast: Denies: rash or new lesions Neuro: Reports: other (+light-headedness x 3); Denies: weakness in extremities Psych: Reports: other (Normal mood) Jerome/Lymph: Denies: easy bruising PFS ED PFSH: Medical History (Updated 10/06/21 @ 00:02 by ) Cannabis use disorder, moderate, dependence Chronic low back pain Generalized anxiety disorder Hypertension Major depressive disorder, recurrent, moderate Nicotine dependence, chewing tobacco, with unspecified nicotine-induced disorders Psychiatric care RLS (restless legs syndrome) Surgical History H/O rotator cuff surgery Left - 1989 History of lumbar laminectomy L5-S1 in 2017 History of tonsillectomy Family History Father Parkinson disease Other CAD (coronary artery disease) Stroke Social History Smoking and tobacco status: current every day smoker smokeless tobacco Smokeless tobacco user: chewing tobacco Smokeless tobacco details: Can lasts 2- 2 1/2 days Quit status (tobacco): has tried quititng Number of times tried to quit tobacco: 3 Second hand smoke exposure: Yes Alcohol intake: never Substance/Drug Use: current Substance/Drug use frequency: Special occassions/opportunity only Substance/Drug use type: Marijuana Physical Exam Const: COMMON NORMALS: alert HENMT: COMMON NORMALS: atraumatic HEAD & SCALP: atraumatic MOUTH: moist mucous membranes not abnormal Eye: COMMON NORMALS: EOMs intact bilaterally and conjunctivae normal CO NJUNCTIVA: Yes conjunctivae normal Neck/C-Spine: COMMON NORMALS: full ROM and supple Resp: COMMON NORMALS: normal respiratory effort and clear to auscultation bilaterally AUSCULTATION: clear to auscultation bilaterally Cardio: COMMON NORMALS: regular rate RATE: regular rate GI: COMMON NORMALS: Soft to palpation and non-tender PALPATION: Yes Soft to palpation Extremity: COMMON NORMALS: full ROM Neuro: SENSORIUM/ORIENTATION: Yes alert MOTOR EXAM: No Abnormal motor strength present and Other motor observations present (no focal motor deficits) OTHER: Mental status? Awake, alert, and oriented to self, year, month, location, and situation.? Following simple axial and appendicular commands.? Has appropriate fund of knowledge, comprehension, and insight.? Able to recall and understands pertinent aspects of medical history and current treatment status.? ? Language? Speech is fluent without word-finding difficulties.? Intact naming, expression, studio receptionist, and repetition.? ? Cranial nerves? 2,3,4,6: PERRL, EOMI with no nystagmus. 5: Intact sensation to light touch, symmetric? 7: Smile symmetrical, no facial droop.? 8: Hearing grossly intact.? 9,10: Normal palate movement.? 11: Normal strength in trapezius bilaterally 12: Tongue protrudes midline.? ? Motor examination? Normal bulk & tone. Strength as follows (R/L): Delts (5/5), Biceps (5/5), Triceps (5/5), Wrist ext (5/5), hip flexors (5/5), plantarflexors (5/5), dorsiflexors (5/5). ? Sensation? Light Touch: Grossly intact and equal in upper and lower extremities bilaterally? Romberg: Negative.? Distal joint position sense intact ? Coordination? Swuvek-fe-bqyk-finger movements intact without dysmetria or past-pointing.? Rapid fingertaps: preserved amplitude without decriment.? No tremor, myoclonus or truncal ataxia.? ? Gait/stance? Steady, normal narrow base gait with appropriate arm swing and turning.? Tandem gait without hesitation or loss of balance. Psych: COMMON NORMALS: speech normal SPEECH: Yes normal speech MOOD & AFFECT: Yes euthymic mood Course Vital Signs: Vital signs: Vital Signs Temperature 97.8 F 10/05/21 04:00 Pulse Rate 54 L 10/05/21 14:00 Respiratory Rate 14 10/05/21 04:00 Blood Pressure 117/76 10/05/21 09:30 Pulse Oximetry 97 10/05/21 04:00 [facility] - General Adult Medical Decision Making 51-year-old male with history of hypertension presenting to the emergency room for evaluation of episodes of lightheadedness and near syncope. Patient on arrival had a low blood pressure 90/40. Patient appears to be dry on exam. He received 2 L of fluid. Patient continues to have recurrent episode of lightheadedness while observed in the emergency room. Patient was noted to have heart rate of 30s. Patient will be hospitalized for evaluation of lightheadedness and bradycardia. Disposition: admission Lab Data : 10/05/21 05:10 10/05/21 05:[address] 10/04/21 19:13 IMPRESSION: No acute intracranial abnormality. Head/Neck CTA 10/04/21 19:27 IMPRESSION: No large vessel stenosis or occlusion. IMPRESSION: No stenosis or occlusion. REFERENCES: NASCET CRITERIA. The degree of internal carotid artery stenosis is based on NASCET criteria. Normal is no stenosis. Mild is less than 50% stenosis. Moderate is 50-69% stenosis. Severe is 70% to 99% stenosis. Total occlusion is no detectable patent lumen. Laboratory Results WBC 8.6 10^3/uL (4.0-10.0) 10/04/21 18:55 RBC 4.71 10^6/uL (4.1-5.3) 10/04/21 18:55 Hgb 14.4 g/dL (11.7-16.6) 10/04/21 18:55 Hct 42.8 % (42.0-52.0) 10/04/21 18:55 MCV 90.9 fl (80-94) 10/04/21 18:55 MCH 30.6 pg (28.0-34.0) 10/04/21 18: MCHC 33.6 g/dL (30.0-36.0) 10/04/21 18: RDW 14.9 % (12.1-15.1) 10/04/21 18:55 Plt Count 230 10^3/cmm (130-400) 10/04/21 18: MPV 11.5 fL (7.4-10.4) H 10/04/21 18:55 Neut % (Auto) 67.9 % 10/04/21 18:55 Lymph % (Auto) 20.8 % 10/04/21 18:55 [place] % (Auto) 9.9 % 10/04/21 18:55 Eos % (Auto) 0.9 % 10/04/21 18:55 Baso % (Auto) 0.2 % 10/04/21 18:55 Neut # (Auto) 5.83 10^3/uL (1.8-7.7) 10/04/21 18:55 Lymph # (Auto) 1.8 10^3/uL (0.8-4.8) 10/04/21 18:55 [place] # (Auto) 0.9 10^3/uL (0.2-0.9) 10/04/21 18:55 Eos # (Auto) 0.1 10^3/uL (0.0-0.8) 10/04/21 18:55 Baso # (Auto) 0.0 10^3/uL (0.0-0.1) 10/04/21 18:55 Nucleated RBC % (auto) 0 % 10/04/21 18:55 Nucleated RBCs # 0.0 /100WBC 10/04/21 18:55 Sodium 139 mmol/L (136-145) 10/04/21 19:20 Potassium 4.0 mmol/L (3.5-5.1) 10/04/21 19:20 Chloride 102 mmol/L (98-107) 10/04/21 19:20 Carbon Dioxide 26 mmol/L (22-29) 10/04/21 19:20 Anion Gap 15.0 (5-19) 10/04/21 19:20 BUN 13 mg/dL (6-20) 10/04/21 19:20 Creatinine 1.2 mg/dL (0.7-1.2) 10/04/21 19:20 GFR Calculation 64.4 mL/min (90-130) L 10/04/21 19:20 Glucose 84 mg/dL (65-115) 10/04/21 19:20 Calculated Osmolality 287 mOsm/kg (285-295) 10/04/21 19:20 Calcium 9.4 mg/dL (8.5-10.5) 10/04/21 19:20 Total Bilirubin 0.3 mg/dL (0.15-1.2) 10/04/21 19:20 AST 16 U/L (0-40) 10/04/21 19:20 ALT 14 U/L (0-41) 10/04/21 19:20 Alkaline Phosphatase 41 IU/L (40-130) 10/04/21 19:20 Troponin T Baseline 6 ng/L (0-15) 10/04/21 19:20 Total Protein 7.1 g/dL (6.6-8.7) 10/04/21 19:20 Albumin 4.3 g/dL (3.5-5.2) 10/04/21 19:20 Globulin 2.8 g/dL (1.3-4.6) 10/04/21 19:20 Discharge Plan Discharge Patient Disposition: Admitted As Inpatient Admit Provider: Francisco Dubon Clinical Impression: Light headedness Condition: Stable Discharge Diet: Regular Discharge Activity: Resume usual activity and Increase activity as tolerated Coding Level of Care Code ED Film Recordist for Chg Fwd Exam Comprehensive
[2021-10-04] MEDS: sodium chloride 0.9% 1,000 ML 999 ML IV ×2 (19:45→21:10)
[2021-10-04 19:47] LABS: Alanine Aminotransferase 14 U/L (0-41); Albumin Level 4.3 g/dL (3.5-5.2); Alkaline Phosphatase 41 IU/L (40-130); Aspartate Amino Transferase 16 U/L (0-40); Blood Urea Nitrogen 13 mg/dL (6-20); Calcium 9.4 mg/dL (8.5-10.5); Carbon Dioxide 26 mmol/L (22-29); Chloride 102 mmol/L (98-107); Creatinine Clr Calc Pharmacy 79.6145; Globulin 2.8 g/dL (1.3-4.6); Glomerular Filtration Rate 64.4 mL/min (90-130); Glucose 84 mg/dL (65-115); Osmolality Calculated 287 mOsm/kg (285-295); Sodium 139 mmol/L (136-145); Total Bilirubin 0.3 mg/dL (0.15-1.2); Total Protein 7.1 g/dL (6.6-8.7)
[2021-10-04 20:07] LABS: Troponin(5th) Baseline 6 ng/L (0-15)
[2021-10-04] MEDS: iohexol 350 mg/mL 100 mL Btl IV (20:26)
[2021-10-04 21:11] VITALS: BP 124/84; PULSE 49; RESP 20; O2SAT 99
[2021-10-04 21:36] VITALS: BP 136/77; PULSE 52; RESP 18; O2SAT 97
[2021-10-04 22:00] VITALS: PULSE 66
[2021-10-04 22:02] VITALS: BMI 21.7
--- NOTE | 2021-10-04 22:03 | P.HP_ITS ---
Providers/Chief Complaint Admitting Physician: Francisco Dubon Chief Complaint: dizziness History of Present Illness Pleasant 51-year-old gentleman presented to ER for evaluation due to several presyncopal episodes today while playing golf, reports initially felt very lightheaded and like he is about to blackout after bending down and then getting up again after picking up a ball. [place] that he was staggering. Subsequently had a similar episode again where he nearly fainted, and it took him little bit of time to come to realize where he was. He denies vertigo. He states that he had little bit of pysh-oqh-hapxdab sensation in his fingertips during the presyncopal episode. Denies any focal numbness or weakness. Denies chest pain or pressure. She does report headache, posterior, in the back of his head and upper neck. Has not had any fever or chills. Reports made him concerned as he normally does not have such episodes, at least not frequently. On occasion in the past he would get lightheaded when getting up at night from bed to use the restroom at that time feeling like he may pass out. But again states this was not common, and not recently. He denies other recent illnesses or medication changes, or from he does state that he has had mild diarrhea last week, although this has now resolved. Denies any blood in his stool or dark black stools. In ER he reported some persistent blurred vision initially, but this has been gradually improving. He denies any symptoms when he is laying down. EKG reported unremarkable in ER, although on telemetry I see he does have heart rate in 50s, occasionally dipping down to high 40s. Discussing with him he is not aware of having any history of issues with bradycardia. He states that he takes aspirin prophylactically, denies any history of MT or CVA in the past. He reports that he had COVID-19 around February. He does report recently getting more short of breath over the past week or so, especially with exertion. No fever or chills, no headache, no nausea or vomiting. As noted earlier diarrhea which has resolved. Review of Systems Const: Denies: fever(s), chills, body aches or malaise Eyes: Denies: change in vision, eye discomfort or eye redness ENMT: Denies: throat pain, oral sores or ear or mastoid pain Card: Denies: chest pain, edema, pre-syncope or dyspnea on exertion Resp: Denies: dyspnea, productive cough, change in phlegm color or hemoptysis GI: Denies: abdominal pain, nausea, vomiting, diarrhea, constipation, hematochezia or melena : Denies: flank pain, difficulty urinating, urinary frequency or hematuria Musc: Denies: back pain, joint swelling or joint redness Skin/Breast: Denies: rash or new lesions Neuro: Reports: headache(s); Denies: numbness in extremities, weakness in extremities, dizziness, vertigo, confusion or seizure-like activity Endo: Denies: polyuria or polydipsia Jerome/Lymph: Denies: easy bleeding or tender lymph nodes All/Imm: Denies: urticaria or tongue swelling Medications/Allergies Home Medications Medication Instructions Recorded Confirmed Last Taken Type aspirin 81 mg tablet,delayed 81 mg PO DAILY 07/30/21 07/30/21 Unknown History release (Adult Aspirin Regimen) bupropion HCl 150 mg 24 hr tablet, 150 mg PO QAM #30 tab 07/30/21 07/30/21 Unknown Rx extended release (Wellbutrin XL) buspirone 5 mg tablet 5 mg PO TID #90 tab 07/30/21 07/30/21 Unknown Rx lisinopril 20 mg tablet 20 mg PO DAILY 07/30/21 07/30/21 Unknown History ropinirole 1 mg tablet 4 mg PO .HS #120 tab 07/30/21 07/30/21 Unknown Rx Allergies Allergy/AdvReac Type Severity Reaction Status Date / Time cyclobenzaprine AdvReac Severe Exaserbates Verified 10/04/21 17:57 [From Flexeril] pt's RLS PFSH Acute PFSH: Medical History Chronic low back pain Hypertension Psychiatric care RLS (restless legs syndrome) Surgical History H/O rotator cuff surgery Left - 1989 History of lumbar laminectomy L5-S1 in 2017 History of tonsillectomy Family History Father Parkinson disease Other CAD (coronary artery disease) Stroke Social History Smoking and tobacco status: current every day smoker smokeless tobacco Smokeless tobacco user: chewing tobacco Smokeless tobacco details: Can lasts 2- 2 1/2 days Quit status (tobacco): has tried quititng Number of times tried to quit tobacco: 3 Second hand smoke exposure: Yes Alcohol intake: never Substance/Drug Use: current Substance/Drug use frequency: Special occassions/opportunity only Substance/Drug use type: Marijuana Vitals/I&O/Wt Last Vital Signs Temp 97.8 F 10/04/21 17:54 Pulse 52 L 10/04/21 21:36 Resp 18 10/04/21 21:36 BP 136/77 10/04/21 21:36 Pulse Ox 97 10/04/21 21:36 10/04/21 10/04/21 10/04/21 06:59 14:59 22:59 Intake Total 1000 / 1000 Balance 1000 / 1000 Weight last 48 hrs Weight 72.575 kg Physical Exam Narrative: Family at bedside. Const: COMMON NORMALS: alert GENERAL APPEARANCE: cooperative ORIENTATION/CONSCIOUSNESS: Yes awake HENMT: COMMON NORMALS: normocephalic, EAC's normal, Normal external nose present and moist oral mucous membranes HEAD & SCALP: normocephalic NOSE: Normal external nose present EXTERNAL AUDITORY CANAL: EAC's normal Neck/C-Spine: COMMON NORMALS: no meningeal signs Chest: CHEST: Yes Symmetrical chest wall rise Resp: COMMON NORMALS: clear to auscultation bilaterally AUSCULTATION: clear to auscultation bilaterally Cardio: COMMON NORMALS: regular rate, regular rhythm and No murmurs present (Cardio) RATE: regular rate and bradycardic RHYTHM: regular rhythm GI: COMMON NORMALS: Normal to inspection, nondistended, normoactive bowel sounds present, Soft to palpation and non-tender PALPATION: Yes Soft to palpation Extremity: COMMON NORMALS: no pedal edema Neuro: COMMON NORMALS: moves all extremities SENSORIUM/ORIENTATION: Yes alert MENINGEAL SIGNS: Yes no meningeal signs Psych: COMMON NORMALS: mental status grossly normal Skin: COMMON NORMALS: no wounds RASHES: no rashes Data : 10/04/21 18:55 10/04/21 19:20 A&P Assessment and plan (1) Pre-syncope: But this wasShe denies symptoms at rest, sitting down or lying down, significantly more orthostatic. He has stayed held initially occasionally in the past with her status when getting up at night to urinate, common, and not recently. Today multiple episodes of presyncope. Denies chest pain or pressure. Will complete cardiac assessment with troponin EKG. Assess with TTE as well and renal with smoking and other cardiac risk factors. New bradycardia. Certainly hypovolemia, orthostasis can be playing a role given he has had diarrhea recently, also noted soft blood pressure on presentation. Reports poor appetite. Received fluid challenge with 1 L bolus in ER. Encourage oral intake as tolerating. Hold lisinopril. Discussed with him also bradycardia, he denies history of prior bradycardia or any issues with slow heart rate or any pauses. Appears to have sinus bradycardia on the monitor. Check TSH. We will set up for a 21-day cardiac event monitor after discharge. He does also have a headache, had persistent blurred vision on presentation to ER. This is currently resolving. Headache is still there, but otherwise no meningeal signs, no fever, oxytocics or other suggestion of infectious cause. He does report being more dyspneic on exertion in the last week. Denies cough. Saturation is good on room air. Will check D-dimer. He had COVID-19 back in February. Long COVID, postural hypotension could be a consideration. With dyspnea, diarrhea, chest COVID-19. Additionally in case of recurrent or persistent symptoms consider contribution from his medications as bupropion, buspirone, and ropinirole can all have adverse effects that can cause 1 or another symptom that he is experiencing. In case of persistent symptoms consider de-escalation 1 by one of his medications to illuminate whether one of them may be contributing. In case of any persistent vision changes or any return or persistence of of any deficits, consider additional work-up possibly inpatient versus outpatient MRI for further assessment of any neuroinflammatory or degenerative conditions. CTA head and neck and head CT were unremarkable. Will need close follow-up with PCP. Please reinforce with him again orthostatic precautions. Status: Acute (2) Bradycardia: Discussed with him also bradycardia, he denies history of prior bradycardia or any issues with slow heart rate or any pauses. Appears to have sinus bradycardia on the monitor. Check TSH. We will set up for a 21-day cardiac event monitor after discharge. Status: Acute (3) Dyspnea on exertion: As above. Check D-dimer. Possible long COVID. Possibly due to orthostasis or bradycardia as above. TTE. Consider referral for PFT. Status: Acute (4) Diarrhea: Recent diarrhea. Now resolved. Denies blood or melena. Status: Acute (5) Headache: As above. Status: Acute Plan Severe RLS: Reports quite severe RLS for which she cannot go without ropinirole due to severity of his restless leg syndrome. Consider outpatient iron studies. Chronic low back pain HTN Attestations Medical Necessity Statement*: Place in observation for additional assessment of multiple presyncopal episodes in a gentleman with cardiac risk factors. 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
--- NOTE | 2021-10-04 22:07 | PC.NURSE ---
ADMIT NOTE Pt received to floor from ER at 2145. Is alert and oriented. Says he was playing golf today when he had 3 incidents of almost passing out. Says he was bending over and when he stood up he was very dizzy and everything went black. Denies LOC but says he couldn't hear things around him and vision was blurry. Says he had some confusion following these incidents. Does report having couple of these when he was younger and couple in last 2 weeks. c/o headache and says has tenderness in base of his skull & neck. hall monitor applied and is showing SR with HR in 60's. Instructed not to be up without assist. Urinal provided for use. RN to bedside to complete admission assessment
--- NOTE | 2021-10-04 22:18 | USCV_ITS ---
Suhail Cao Age: 51 Gender: M : 1970 Exam Date: 10/04/2021 23:27 Ordering Phys: Francisco Dubon MD Technologist: Jay Avina [place] [facility] [place]: presyncopal episode BP: 114 / 58 HR: 53 Rhythm: Sinus Technical Quality: Adequate MEASUREMENTS (Male / Female) Normal Values 2D ECHO LV Diastolic Diameter PLAX 4.3 cm 4.2 - 5.9 / 3.9 - 5.3 cm LV Systolic Diameter PLAX 2.7 cm IVS Diastolic Thickness 1.0 cm 0.6 - 1.0 / 0.6 - 0.9 cm IVS Systolic Thickness 1.3 cm LVPW Diastolic Thickness 1.8 cm 0.6 - 1.0 / 0.6 - 0.9 cm LVPW Systolic Thickness 2.4 cm LVOT Diameter 2.0 cm LV Ejection Fraction 2D Teich 66.3 % LV Ejection Fraction MOD 2C 67.3 % LV Ejection Fraction 2C AL 67.6 % LA Diameter 2.9 cm Aorta at Sinotubular Diameter 2.4 cm IVC Diameter 1.4 cm M-MODE Aortic Annulus Diameter 2.9 cm LA Ao Ratio MM 1.0 MV E Point Septal Separation 0.8 cm DOPPLER AV Peak Velocity 101.8 cm/s LVOT Peak Velocity 69.0 cm/s AV Area Cont Eq vti 1.9 cm squared AV Area Cont Eq pk 2.1 cm squared MV Area PHT 4.6 cm squared Mitral E to A Ratio 1.0 MV E' Velocity 42.5 cm/s Mitral E to MV E' Ratio 5.7 Mitral E to LV E' Lateral Ratio 5.4 Mitral E to LV E' Septal Ratio 6.1 TR Peak Velocity 124.5 cm/s TR Peak Gradient 6.2 mmHg TR Mean Velocity 70.4 cm/s TR Mean Gradient 2.4 mmHg TR Velocity Time Integral 27.6 cm Right Atrial Pressure 3.0 mmHg Pulmonary Artery Systolic Pressu 9.2 mmHg PV Peak Velocity 104.0 cm/s FINDINGS Left Ventricle Normal left ventricular size. LV systolic function is normal with EF of 55-60%. No regional wall motion abnormalities. Diastolic function is normal Right Ventricle The right ventricle is normal in size and function. Right Atrium The right atrium is normal in size. Left Atrium The left atrium is normal in size. Mitral Valve Structurally normal mitral valve without significant stenosis or prolapse. There is mild mitral regurgitation. Aortic Valve Structurally normal aortic valve without significant sclerosis or stenosis. There is no aortic regurgitation. Tricuspid Valve Structurally normal tricuspid valve without significant stenosis. Trace tricuspid regurgitation. Insufficient TR jet to calculate RVSP. Pulmonic Valve Not well visualized Pericardium Normal pericardium without effusion. Aorta Normal ascending aorta dimension. IVC CONCLUSIONS LV systolic function is normal with EF of 55-60% Diastolic function is normal Mild mitral regurgitation Trace tricuspid regurgitation No comparison studies are available Harsh De Jesus MD (Electronically Signed) Final Date: 05 October 2021 10:37 S
[2021-10-04 22:25] VITALS: BP 114/58; PULSE 65; RESP 17; TEMP 36.3; O2SAT 98
[2021-10-04 22:32] VITALS: BP 127/90; BP 128/91
[2021-10-04 22:34] LABS: D Dimer 0.41 ug/mIFEU (0-0.59)
[2021-10-04 22:41] LABS: Troponin 5 2HR 6.16 ng/L (0-15)
[2021-10-04 22:42] LABS: Troponin 5 2HR Delta 0.16 ABS# (0-10)
[2021-10-04 22:46] LABS: Thyroid Stimulating Hormone 1.13 uIU/mL (0.27-4.20)
[2021-10-04] MEDS: ropinirole 1 mg Tablet 3 MG PO (22:55)
[2021-10-04] MEDS: lactated ringers 1,000 ML 75 ML IV (22:56)
[2021-10-05 04:00] VITALS: BP 116/77; PULSE 72; RESP 14; TEMP 36.6; O2SAT 97
[2021-10-05 05:43] LABS: Basophils % 0.5 %; Eosinophils # 0.2 10^3/uL (0.0-0.8); Eosinophils % 2.6 %; Hematocrit 38.2 % (42.0-52.0); Lymphocytes % 33.6 %; Mean Corpuscular Hemoglobin 30.4 pg (28.0-34.0); Mean Corpuscular Volume 89.5 fl (80-94); Mean Platelet Volume 11.3 fL (7.4-10.4); Monocytes # 0.7 10^3/uL (0.2-0.9); Neutrophils # 2.96 10^3/uL (1.8-7.7); Nucleated Red Blood Cells % 0 %; Platelet Count 185 10^3/cmm (130-400); Red Blood Count 4.27 10^6/uL (4.1-5.3); Red Cell Distribution Width 12.7 % (12.1-15.1); White Blood Count 5.8 10^3/uL (4.0-10.0)
[2021-10-05 05:54] VITALS: PULSE 53
--- NOTE | 2021-10-05 05:58 | PC.NURSE ---
SHIFT SUMMARY Has rested well since admission to floor. Telemetry has shown SR/SB with lowest rate seen 45. Has mostly been in 50's/60's Voiding well per urinal. IV infusing at 75ml/hr rate.
[2021-10-05 06:05] LABS: Albumin Level 3.8 g/dL (3.5-5.2); Alkaline Phosphatase 39 IU/L (40-130); Anion Gap 10.2 (5-19); Aspartate Amino Transferase 19 U/L (0-40); Blood Urea Nitrogen 10 mg/dL (6-20); Calcium 8.7 mg/dL (8.5-10.5); Carbon Dioxide 27 mmol/L (22-29); Chloride 106 mmol/L (98-107); Globulin 2.5 g/dL (1.3-4.6); Glomerular Filtration Rate 89.7 mL/min (90-130); Glucose 88 mg/dL (65-115); Osmolality Calculated 286 mOsm/kg (285-295); Potassium 4.2 mmol/L (3.5-5.1); Sodium 139 mmol/L (136-145); Total Bilirubin 0.4 mg/dL (0.15-1.2); Total Protein 6.3 g/dL (6.6-8.7)
[2021-10-05 06:18] LABS: Alanine Aminotransferase 17 U/L (0-41)
--- NOTE | 2021-10-05 09:09 | PC.PHAR ---
pt states he takes care of his own medications-[facility] last filled buspar 08/10/21 30d/s for 5mg tid-pt states he just takes one tab qam-pt states he has another rx for wellburtin but states he couldnt afford it [facility] last filled 07/09/21 30d/s for xl 150mg daily for $18.00-[facility] states buspar and wellburtin both have refills-notes are made in the pharmacy comments
[2021-10-05 09:30] VITALS: BP 114/74; BP 117/76; BP 121/78; PULSE 59; PULSE 66
[2021-10-05 09:48] LABS: Chol HDL Ratio 4.85 mg/dL (1.0-5.00); Cholesterol 160 mg/dL (0-200); HDL Cholesterol 33 mg/dL (60-100); LDL Cholesterol Calculated 108 mg/dL (50-129); Triglycerides 94 mg/dL (0-150); VLDL Cholestrol Calculation 19 mg/dL (0-30)
[2021-10-05] MEDS: acetaminophen 325 mg Tablet 650 MG PO (10:35)
--- NOTE | 2021-10-05 11:32 | P.DS_ITS ---
Discharge Providers Date of Admission: 10/04/21 20:39 Date of Discharge: October 05, 2021 Attending Provider at Admission: Francisco Dubon Attending Provider at Discharge: Kar King MD Diagnoses at Discharge Discharge Diagnosis (1) BPPV (benign paroxysmal positional vertigo): Status: Acute (2) Pre-syncope: Status: Acute (3) Bradycardia: Status: Acute (4) Dyspnea on exertion: Status: Acute (5) Diarrhea: Status: Acute (6) Headache: Status: Acute Reason for Visit Reason for Visit: dizziness Brief History: Pleasant 51-year-old gentleman with past medical history of COVID-19 in February 2021, hypertension presented to ER for evaluation due to several presyncopal episodes today while playing golf, reports initially felt very lightheaded and like he is about to blackout after bending down and then getting up again after picking up a ball.? [place] that he was staggering.? Subsequently had a similar episode again where he nearly fainted, and it took him little bit of time to come to realize where he was.? He denies vertigo.? He states that he had little bit of [id number] sensation in his fingertips during the presyncopal episode.? Denies any focal numbness or weakness.? Denies chest pain or pressure. She does report headache, posterior, in the back of his head and upper neck.? Has not had any fever or chills. Reports made him concerned as he normally does not have such episodes, at least not frequently.? On occasion in the past he would get lightheaded when getting up at night from bed to use the restroom at that time feeling like he may pass out.? But again states this was not common, and not recently. He denies other recent illnesses or medication changes, or from he does state that he has had mild diarrhea last week, although this has now resolved.? Denies any blood in his stool or dark black stools. Hospital Course Hospital Course Patient was admitted to hospital further evaluation and management of presyncope. Work-up including CT head, CTA head and neck, echocardiogram were within normal limits. On admission patient was slightly orthostatic positive most likely secondary to dehydration. He was started on IV hydration and his blood pressures and orthostatics improved. His home dose of lisinopril was withheld. Patient did not have any further of presyncope and his dizziness also improved. He continued to complain of slight dizziness on moving his head from 1 side to another or changing his position in bed. It is believed his symptoms are most likely secondary to combination of benign postural vertigo, dehydration because of excessive heat while being on the golf [place] leading to positive orthostatics. During hospitalization he was found to have transient bradycardia. EKG did not reveal any heart block. He has been discharged in hemodynamically stable condition with advised to yrn aparicio maintaining his hydration with up to 2 to 3 L of liquids daily, dose of lisinopril has been changed to 10 mg oral daily. He is advised to check his blood pressure at least twice daily and maintain a blood pressure diary and follow-up with his primary care provider within next 1 week for further adjustment of antihypertensives needed. Patient was counseled in detail regarding neck exercises. He can take meclizine 12.5 mg twice daily on as- needed basis. Physical Exam Narrative: Family at bedside. Const: COMMON NORMALS: alert GENERAL APPEARANCE: cooperative ORIENTATION/CONSCIOUSNESS: Yes awake HENMT: COMMON NORMALS: normocephalic, EAC's normal, Normal external nose present and moist oral mucous membranes HEAD & SCALP: normocephalic NOSE: Normal external nose present EXTERNAL AUDITORY CANAL: EAC's normal Neck/C-Spine: COMMON NORMALS: no meningeal signs Chest: CHEST: Yes Symmetrical chest wall rise Resp: COMMON NORMALS: clear to auscultation bilaterally AUSCULTATION: clear to auscultation bilaterally Cardio: COMMON NORMALS: regular rate, regular rhythm and No murmurs present (Cardio) RATE: regular rate and bradycardic RHYTHM: regular rhythm GI: COMMON NORMALS: Normal to inspection, nondistended, normoactive bowel sounds present, Soft to palpation and non-tender PALPATION: Yes Soft to palpation Extremity: COMMON NORMALS: no pedal edema Neuro: COMMON NORMALS: moves all extremities SENSORIUM/ORIENTATION: Yes alert MENINGEAL SIGNS: Yes no meningeal signs Psych: COMMON NORMALS: mental status grossly normal Skin: COMMON NORMALS: no wounds RASHES: no rashes Discharge Data Studies Completed and Pending Completed Studies During Hospitalization Category Date Time Status CT head wo con* [id number] Urgent Cat Scan 10/04/21 19:13 Completed CTA head neck [CT angio headneck* [id number]] Urgent Cat Scan 10/04/21 19:27 Completed CV. echo complete* [id number] Routine Ultrasound 10/04/21 22:18 Completed Pending at discharge Category Date Time Status Complete Blood Count w/Auto AM LABS Lab 10/06/21 04:00 Ordered Complete Blood Count w/Auto AM LABS Lab 10/07/21 04:00 Ordered Comprehensive Metabolic Panel AM LABS Lab 10/06/21 04:00 Ordered Comprehensive Metabolic Panel AM LABS Lab 10/07/21 04:00 Ordered Hemoglobin A1C Routine Lab 10/05/21 05:10 Received [facility] SARS-CoV-2 RNA Routine Lab 10/04/21 23:00 Received SARS Covid-2 Antigen Routine Lab 10/05/21 11:06 Received Radiology Impressions Head CT 10/04/21 19:13 IMPRESSION: No acute intracranial abnormality. Head/Neck CTA 10/04/21 19:27 IMPRESSION: No large vessel stenosis or occlusion. IMPRESSION: No stenosis or occlusion. REFERENCES: NASCET CRITERIA. The degree of internal carotid artery stenosis is based on NASCET criteria. Normal is no stenosis. Mild is less than 50% stenosis. Moderate is 50-69% stenosis. Severe is 70% to 99% stenosis. Total occlusion is no detectable patent lumen. Laboratory Results WBC 5.8 10^3/uL (4.0-10.0) 10/05/21 05:10 RBC 4.27 10^6/uL (4.1-5.3) 10/05/21 05:10 Hgb 13.0 g/dL (11.7-16.6) 10/05/21 05:10 Hct 38.2 % (42.0-52.0) L 10/05/21 05:10 MCV 89.5 fl (80-94) 10/05/21 05:10 MCH 30.4 pg (28.0-34.0) 10/05/21 05:10 MCHC 34.0 g/dL (30.0-36.0) 10/05/21 05:10 RDW 12.7 % (12.1-15.1) 10/05/21 05:10 Plt Count 185 10^3/cmm (130-400) 10/05/21 05:10 MPV 11.3 fL (7.4-10.4) H 10/05/21 05:10 Neut % (Auto) 51.0 % 10/05/21 05:10 Lymph % (Auto) 33.6 % 10/05/21 05:10 [place] % (Auto) 12.0 % 10/05/21 05:10 Eos % (Auto) 2.6 % 10/05/21 05:10 Baso % (Auto) 0.5 % 10/05/21 05:10 Neut # (Auto) 2.96 10^3/uL (1.8-7.7) 10/05/21 05:10 Lymph # (Auto) 2.0 10^3/uL (0.8-4.8) 10/05/21 05:10 [place] # (Auto) 0.7 10^3/uL (0.2-0.9) 10/05/21 05:10 Eos # (Auto) 0.2 10^3/uL (0.0-0.8) 10/05/21 05:10 Baso # (Auto) 0.0 10^3/uL (0.0-0.1) 10/05/21 05:10 Nucleated RBC % (auto) 0 % 10/05/21 05:10 Nucleated RBCs # 0.0 /100WBC 10/05/21 05:10 D-Dimer 0.41 ug/mIFEU (0-0.59) 10/04/21 22:10 Sodium 139 mmol/L (136-145) 10/05/21 05:10 Potassium 4.2 mmol/L (3.5-5.1) 10/05/21 05:10 Chloride 106 mmol/L (98-107) 10/05/21 05:10 Carbon Dioxide 27 mmol/L (22-29) 10/05/21 05:10 Anion Gap 10.2 (5-19) 10/05/21 05:10 BUN 10 mg/dL (6-20) 10/05/21 05:10 Creatinine 0.9 mg/dL (0.7-1.2) 10/05/21 05:10 GFR Calculation 89.7 mL/min (90-130) L 10/05/21 05:10 Glucose 88 mg/dL (65-115) 10/05/21 05:10 Calculated Osmolality 286 mOsm/kg (285-295) 10/05/21 05:10 Calcium 8.7 mg/dL (8.5-10.5) 10/05/21 05:10 Total Bilirubin 0.4 mg/dL (0.15-1.2) 10/05/21 05:10 AST 19 U/L (0-40) 10/05/21 05:10 ALT 17 U/L (0-41) 10/05/21 05:10 Alkaline Phosphatase 39 IU/L (40-130) L 10/05/21 05:10 Troponin T Baseline 6 ng/L (0-15) 10/04/21 19:20 Troponin T 120 Minute 6.16 ng/L (0-15) 10/04/21 22:10 Delta Troponin T 0.16 ABS# (0-10) 10/04/21 22:10 Total Protein 6.3 g/dL (6.6-8.7) L 10/05/21 05:10 Albumin 3.8 g/dL (3.5-5.2) 10/05/21 05:10 Globulin 2.5 g/dL (1.3-4.6) 10/05/21 05:10 Triglycerides 94 mg/dL (0-150) 10/05/21 05:10 Cholesterol 160 mg/dL (0-200) 10/05/21 05:10 LDL Cholesterol, Calc 108 mg/dL (50-129) 10/05/21 05:10 Total VLDL Cholesterol 19 mg/dL (0-30) 10/05/21 05:10 HDL Cholesterol 33 mg/dL (60-100) L 10/05/21 05:10 Cholesterol/HDL Ratio 4.85 mg/dL (1.0-5.00) 10/05/21 05:10 TSH 1.13 uIU/mL (0.27-4.20) 10/04/21 22:10 Vitals Last Vital Signs Temp 97.8 F 10/05/21 04:00 Pulse 59 L 10/05/21 09:30 Resp 14 10/05/21 04:00 BP 117/76 10/05/21 09:30 Pulse Ox 97 10/05/21 04:00 Discharge Plan Discharge Patient Disposition: Home Condition: Stable Prescriptions: New meclizine 12.5 mg tablet 12.5 mg PO BID PRN (Reason: dizziness) Qty: 14 0RF Continued aspirin [Adult Aspirin Regimen] 81 mg tablet,delayed release (DR/EC) 81 mg PO QAM 0RF ropinirole 1 mg tablet 3 - 4 mg PO BEDTIME 0RF buspirone 5 mg tablet 5 mg PO QAM 0RF Changed lisinopril 20 mg tablet 10 mg PO QAM Qty: 0 0RF Discharge Orders: Discharge Order (Routine); Ordered 10/05/21 Ordered By: Kar King Other Ambulatory Orders: MCT/Event Monitor 21 Days (Routine) Timeframe: 1 Day Facility: [facility] - Location: Radiology Ordered By: Kar King Referrals: Dr. Aldrich [Other] - 10/12/21 1:00 pm (You have an appointment with Dr. Aldrich at [facility] on October 12, 2021 at 1:00 pm. If you have any questions or concerns please call. ) Hunter Cantu MD [Physician] - 10/09/21 9:00 am (You have an appointment with Dr. Cantu on October 09, 2021 at 9:00 am. ) Discharge Diet: Regular Discharge Activity: Resume usual activity and Increase activity as tolerated Patient Instructions: Lisinopril (By mouth) (Prinivil, Zestril), Buspirone (By mouth), Aspirin (By mouth) (Naomi Extra Strength, Naomi Aspirin Children's,..., Ropinirole (By mouth) (Requip, Requip XL), Benign Paroxysmal Positional Vertigo (ED), Benign Paroxysmal Positional Vertigo (DC), Cervical Spinal Stenosis (GEN), Opioid Safety Activity Restrictions/Additional Instructions: Check Blood Pressure 2 times a day and maintain blood pressure diary. F/u with PCP in 7-10 days for adjustment of meds. Take meclizine as needed 2 times a day for BPPV. Please make sure you are changing positions from laying to sitting, sitting to standing slowly within 30 seconds. Please continue to your neck exercises as discussed in detail. Discharge Attestations Time Spent in Discharge Care*: greater than 30 min Specific Discharge Activities: educating patient, educating and/or supporting family/caregiver, discussing with piano case and bench assembler/social workers/dc planners, documenting/other paperwork and evaluating patient/reviewing data Status at Discharge: Cognitive status at discharge: cognitively intact , Behavioral status at discharge: cooperative , Functional status at discharge: independent ambulation , Overall status at discharge: patient is back to baseline Quality Metrics Clinical Quality Measures [ No reported AMI, CVA or VTE this stay] Coding Level of Care Code Acute Chg FW DC note Exam Comprehensive Medical Decision Making High Complexity Diagnoses Pre-syncope R55 Bradycardia R00.1 Dyspnea on exertion R06.00 Diarrhea R19.7 Headache R51.9 BPPV (benign paroxysmal positional vertigo) H81.10
[2021-10-05 11:42] LABS: SARS Covid-2 Antigen Negative (Negative)
[2021-10-05 12:00] VITALS: PULSE 59
[2021-10-05 12:38] LABS: Estmated Average Glucose 117; Hemoglobin A1C 5.7 % (4.0-6.0)
--- NOTE | 2021-10-05 13:46 | PC.SOCIAL ---
Financial Assistance: Patient provided w/ the [facility] paperwork and encouraged to complete. Sig. Other is @ bedside.
[2021-10-05 14:00] VITALS: PULSE 54
[2021-10-06 15:02] LABS: Quest SARS-CoV-2 RNA NOT DETECTED (NOT DETECTED)
== END 2021-10-05 14:37 | disposition home or self-care (01) ==
LOC: ER 20:38 → MEDSURG 21:31
PROVIDERS: Emergency Medicine; Admitting Provider Internal Medicine; Emergency Provider Emergency Medicine; Visit Provider Student in an Organized Health Care Education/Training Program
DX: H81.10 Benign paroxysmal vertigo, unspecified ear (principal); R55 Syncope and collapse; R00.1 Bradycardia, unspecified; R06.00 Dyspnea, unspecified; R19.7 Diarrhea, unspecified; R51.9 Headache, unspecified; Z86.16 Personal history of COVID-19; Z79.82 Long term (current) use of aspirin; F17.290 Nicotine dependence, other tobacco product, uncomplicated; G25.81 Restless legs syndrome; I10 Essential (primary) hypertension; G89.29 Other chronic pain; M54.9 Dorsalgia, unspecified
CPT/HCPCS: 36415; 70450; 70496; 70498; 80053; 80061; 83036; 84443; 84484; 85025; 85378; 87426; 87635; 93005; 93306; 96360; 96361; 99285; G0378; J7030; Q9967

== ENCOUNTER 2022-01-20 06:07 | Emergency (ER) | payer SELFPAY ==
--- NOTE | 2022-01-20 | US_ITS ---
WS: [id number] TESTICULAR ULTRASOUND HISTORY: TESTICLE PAIN COMPARISON: 06/06/2008 TECHNIQUE: Real-time and color Doppler imaging or utilized to perform a testicular ultrasound. Right testicle: 4.3 cm x 2.9 cm x 2.0 cm. Normal size and echogenicity. No mass or torsion. Normal color Doppler is present throughout. Systolic and diastolic velocities are both present. No significant hydrocele. Right epididymis: Normal epididymis with no increased vascularity. Left testicle: 4.6 cm x 3.2 cm x 1.6 cm. Normal size and echogenicity. No mass or torsion. Normal color Doppler is present throughout. Systolic and diastolic velocities are both present. No significant hydrocele. Left epididymis: Normal size epididymis. Small epididymal head cyst measuring 5 x 5.4 mm. US/US scrotum [id number] IMPRESSION: NORMAL TESTICULAR ULTRASOUND.
[2022-01-20 06:11] VITALS: BP 153/91; PULSE 61; RESP 18; TEMP 36.5; O2SAT 98; BMI 21.5
[2022-01-20] MEDS: ketorolac 30 mg/mL INJ IVP (06:35)
--- NOTE | 2022-01-20 06:40 | W.ED.MALEGU ---
HPI - Male Genitourinary General: Chief complaint: Urogenital-Male Stated complaint: Testicle Pain Time Seen by Provider: 01/20/22 06:25 Source: patient Mode of arrival: ambulatory History of Present Illness: 51-year-old male presents emergency room complaining of left testicle pain. He states he felt fine yesterday and then woke up this morning at around 2:30 AM and had a left testicle discomfort he is very nauseous but did not vomit he denies any dysuria urgency or frequency no hematuria. No recent trauma. No history of any surgeries. He does not recall any precipitating event he has not noticed any significant swelling but has pain in the left testicle rating up into the abdomen. He does not know anything that makes it better or worse. MD Complaint: testicle pain (Left) Onset (ago): day(s) (1) Duration: constant Location: left testicle Radiation: abdomen Severity: moderate Quality: aching Relieving factors: none Exacerbating factors: none Associated symptoms: Deny discharge, dysuria, fevers/chills, hematuria, nausea, rash, swelling, urinary incontinence, urinary retention, mass or vomiting Review of Systems Const: Denies: fever(s), chills, body aches, change in appetite, fatigue or malaise ENMT: Denies: throat pain, ear or mastoid pain, nasal discharge or nasal congestion Card: Denies: chest pain, palpitations, irregular heart rhythm, edema, dyspnea on exertion or orthopnea Resp: Denies: dyspnea, productive cough or non-productive cough GI: Reports: abdominal pain; Denies: nausea or vomiting : Denies: flank pain, difficulty urinating, dysuria, urinary frequency, urinary urgency, urinary incontinence or hematuria Skin/Breast: Denies: rash or pruritus PFSH ED PFSH: Medical History Cannabis use disorder, moderate, dependence Chronic low back pain Generalized anxiety disorder Hypertension Major depressive disorder, recurrent, moderate Nicotine dependence, chewing tobacco, with unspecified nicotine-induced disorders Psychiatric care RLS (restless legs syndrome) Surgical History H/O rotator cuff surgery Left - 1989 History of lumbar laminectomy L5-S1 in 2017 History of tonsillectomy Family History Father Parkinson disease Other CAD (coronary artery disease) Stroke Social History Smoking and tobacco status: current every day smoker smokeless tobacco Smokeless tobacco user: chewing tobacco Smokeless tobacco details: Can lasts 3 days Quit status (tobacco): has tried quititng Number of times tried to quit tobacco: 3 Second hand smoke exposure: Yes Smoking risk assessment/counseling performed?: No Alcohol intake: former Desire information about alcohol rehabilitation?: No Counseling given: No Desire information about substance/drug rehabilitation?: No Counseling given: No Physical Exam Const: GENERAL APPEARANCE: cooperative and comfortable ORIENTATION/CONSCIOUSNESS: Yes awake, Yes oriented to person, Yes oriented to place and Yes oriented to time HENMT: COMMON NORMALS: normocephalic, atraumatic and hearing grossly normal bilaterally HEAD & SCALP: normocephalic and atraumatic Resp: COMMON NORMALS: normal respiratory effort, No retractions, No use of accessory muscles and clear to auscultation bilaterally AUSCULTATION: clear to auscultation bilaterally Cardio: COMMON NORMALS: regular rate, regular rhythm and No murmurs present (Cardio) RATE: regular rate RHYTHM: regular rhythm GI: COMMON NORMALS: Soft to palpation and No hepatosplenomegaly present AUSCULTATION: Yes normoactive bowel sounds PALPATION: Yes Soft to palpation, No Tenderness to palpation present (GI), No Guarding due to palpation present (GI) and Yes No hepatosplenomegaly present : COMMON NORMALS: Yes no CVA tenderness BLADDER/KIDNEY EXAM: Yes no CVA tenderness Back/Pelvis: COMMON NORMALS: no CVA tenderness Extremity: COMMON NORMALS: normal to inspection, capillary refill normal, no clubbing, cyanosis or edema, no calf tenderness and no pedal edema Neuro: SENSORIUM/ORIENTATION: Yes oriented to person, Yes oriented to place and Yes oriented to time Skin: COMMON NORMALS: no rashes or lesions noted GENERAL SKIN EXAM: no rashes or lesions noted Course Vital Signs: Vital signs: Vital Signs Temperature 97.7 F 01/20/22 06:11 Pulse Rate 66 01/20/22 09:03 Respiratory Rate 16 01/20/22 06:46 Blood Pressure 112/76 01/20/22 09:03 Pulse Oximetry 98 01/20/22 09:03 Oxygen Delivery Me thod 01/20/22 06:46 MDM - Male Medical Decision Making Normal testicular ultrasound. No sign of infection or significant hematuria on UA. No CVA tenderness suggestive of pyelonephritis. Renal function is normal so I do not believe there is any obstruction. He has been able to empty his bladder without any difficulty he has no worsening of pain with urination. Will treat with anti-inflammatories if worsening symptoms or change of symptoms return to the emergency room. Medical Records I reviewed the patient's medical records. Lab Data I reviewed the patient's lab results. : 01/20/22 06:36 01/20/22 06:36 Radiology Impressions Scrotum Ultrasound 01/20/22 00:00 IMPRESSION: NORMAL TESTICULAR ULTRASOUND. Laboratory Results WBC 6.1 10^3/uL (4.0-10.0) 01/20/22 06:36 RBC 5.29 10^6/uL (4.1-5.3) 01/20/22 06:36 Hgb 16.2 g/dL (11.7-16.6) 01/20/22 06:36 Hct 48.8 % (42.0-52.0) 01/20/22 06:36 MCV 92.2 fl (80-94) 01/20/22 06:36 MCH 30.6 pg (28.0-34.0) 01/20/22 06:36 MCHC 33.2 g/dL (30.0-36.0) 01/20/22 06:36 RDW 12.3 % (12.1-15.1) 01/20/22 06:36 Plt Count 212 10^3/cmm (130-400) 01/20/22 06:36 MPV 11.0 fL (7.4-10.4) H 01/20/22 06:36 Neut % (Auto) 50.2 % 01/20/22 06:36 Lymph % (Auto) 33.5 % 01/20/22 06:36 [place] % (Auto) 12.2 % 01/20/22 06:36 Eos % (Auto) 2.8 % 01/20/22 06:36 Baso % (Auto) 0.5 % 01/20/22 06:36 Neut # (Auto) 3.06 10^3/uL (1.8-7.7) 01/20/22 06:36 Lymph # (Auto) 2.0 10^3/uL (0.8-4.8) 01/20/22 06:36 [place] # (Auto) 0.7 10^3/uL (0.2-0.9) 01/20/22 06:36 Eos # (Auto) 0.2 10^3/uL (0.0-0.8) 01/20/22 06:36 Baso # (Auto) 0.0 10^3/uL (0.0-0.1) 01/20/22 06:36 Nucleated RBC % (auto) 0 % 01/20/22 06:36 Nucleated RBCs # 0.0 /100WBC 01/20/22 06:36 Sodium 136 mmol/L (136-145) 01/20/22 06:36 Potassium 4.5 mmol/L (3.5-5.1) 01/20/22 06:36 Chloride 104 mmol/L (98-107) 01/20/22 06:36 Carbon Dioxide 24 mmol/L (22-29) 01/20/22 06:36 Anion Gap 12.5 (5-19) 01/20/22 06:36 BUN 14 mg/dL (6-20) 01/20/22 06:36 Creatinine 0.8 mg/dL (0.7-1.2) 01/20/22 06:36 GFR Calculation 102.7 mL/min (90-130) 01/20/22 06:36 Glucose 101 mg/dL (65-115) 01/20/22 06:36 Calculated Osmolality 283 mOsm/kg (285-295) L 01/20/22 06:36 Calcium 9.4 mg/dL (8.5-10.5) 01/20/22 06:36 Total Bilirubin 0.3 mg/dL (0.15-1.2) 01/20/22 06:36 AST 24 U/L (0-40) 01/20/22 06:36 ALT 28 U/L (0-41) 01/20/22 06:36 Alkaline Phosphatase 64 U/L (40-130) 01/20/22 06:36 Total Protein 7.4 g/dL (6.6-8.7) 01/20/22 06:36 Albumin 4.4 g/dL (3.5-5.2) 01/20/22 06:36 Globulin 3.0 g/dL (1.3-4.6) 01/20/22 06:36 Urine Color Yellow (Yellow) 01/20/22 06:36 Urine Appearance Clear (CLEAR) 01/20/22 06:36 Urine pH 5 (5-7) 01/20/22 06:36 Ur Specific [place] 1.020 (1.005-1.030) 01/20/22 06:36 Urine Protein Neg (Negative) 01/20/22 06:36 Urine Glucose (UA) Norm (Normal) 01/20/22 06:36 Urine Ketones Negative (Negative) 01/20/22 06:36 Urine Blood 3+ (Negative) H 01/20/22 06:36 Urine Nitrate Negative (Negative) 01/20/22 06:36 Urine Bilirubin Neg (Negative) 01/20/22 06:36 Urine Urobilinogen Norm mg/dL (Negative) 01/20/22 06:36 Ur Leukocyte Esterase Negative (Negative) 01/20/22 06:36 Urine RBC 0-4 /hpf (0-2) H 01/20/22 06:36 Urine WBC 0-4 /hpf (0-5) H 01/20/22 06:36 Ur Squamous Epith Cells 0-4 /hpf (0-5) H 01/20/22 06:36 Amorphous Sediment Not Reportable 01/20/22 06:36 Urine Bacteria Trace /hpf (NONE) 01/20/22 06:36 Urine Mucus 3+ /hpf 01/20/22 06:36 Discharge Plan Discharge Patient Disposition: Home Clinical Impression: Left testicular pain Condition: Stable Prescriptions: New diclofenac sodium 75 mg tablet,delayed release (DR/EC) 75 mg PO Q12H PRN (Reason: pain) Qty: 20 0RF No Action aspirin [Adult Aspirin Regimen] 81 mg tablet,delayed release (DR/EC) 81 mg PO QAM bupropion HCl [Wellbutrin XL] 150 mg tablet extended release 24 hr 150 mg PO QAM Qty: 90 0RF buspirone 5 mg tablet 5 mg PO TID Qty: 270 0RF ropinirole 1 mg tablet 4 mg PO BEDTIME Qty: 360 0RF lisinopril 20 mg tablet 10 mg PO QAM Qty: 0 0RF ondansetron 4 mg tablet,disintegrating 4 mg PO Q8H PRN (Reason: nausea and vomiting) Qty: 15 0RF oxycodone 5 mg tablet 5 mg PO Q4H PRN (Reason: pain) Qty: 10 0RF Cipro 500 mg tablet 500 mg PO BID Qty: 19 0RF Flomax 0.4 mg capsule 0.4 mg PO .qhs Qty: 20 0RF Discharge Orders: Discharge ED (Routine); Ordered 01/20/22 Ordered By: Luis Cox Discharge Diet: Usual diet Discharge Activity: Increase activity as tolerated Patient Instructions: Opioid Safety, Pain Management Activity Restrictions/Additional Instructions: Use diclofenac as needed for discomfort. Recommend scrotal support in the form of athletic supporter or other tight fitting underwear. If symptoms persist follow-up with your primary care doctor for possible referral to urology. Coding Level of Care Code ED Bowstring Maker for Billy Fwd Exam Detailed
[2022-01-20 06:46] VITALS: BP 122/83; PULSE 60; RESP 16; O2SAT 95
[2022-01-20 06:46] LABS: Basophils % 0.5 %; Eosinophils # 0.2 10^3/uL (0.0-0.8); Eosinophils % 2.8 %; Hematocrit 48.8 % (42.0-52.0); Hemoglobin 16.2 g/dL (11.7-16.6); Lymphocytes % 33.5 %; Mean Corpuscular HGB Conc 33.2 g/dL (30.0-36.0); Mean Corpuscular Hemoglobin 30.6 pg (28.0-34.0); Mean Corpuscular Volume 92.2 fl (80-94); Monocytes # 0.7 10^3/uL (0.2-0.9); Monocytes % 12.2 %; Neutrophils # 3.06 10^3/uL (1.8-7.7); Neutrophils % 50.2 %; Nucleated Red Blood Cells % 0 %; Platelet Count 212 10^3/cmm (130-400); Red Blood Count 5.29 10^6/uL (4.1-5.3); Red Cell Distribution Width 12.3 % (12.1-15.1); White Blood Count 6.1 10^3/uL (4.0-10.0)
[2022-01-20 07:01] LABS: Alanine Aminotransferase 28 U/L (0-41); Albumin Level 4.4 g/dL (3.5-5.2); Alkaline Phosphatase 64 U/L (40-130); Anion Gap 12.5 (5-19); Aspartate Amino Transferase 24 U/L (0-40); Blood Urea Nitrogen 14 mg/dL (6-20); Calcium 9.4 mg/dL (8.5-10.5); Carbon Dioxide 24 mmol/L (22-29); Chloride 104 mmol/L (98-107); Glomerular Filtration Rate 102.7 mL/min (90-130); Glucose 101 mg/dL (65-115); Osmolality Calculated 283 mOsm/kg (285-295); Potassium 4.5 mmol/L (3.5-5.1); Sodium 136 mmol/L (136-145); Total Bilirubin 0.3 mg/dL (0.15-1.2); Total Protein 7.4 g/dL (6.6-8.7)
[2022-01-20 07:29] VITALS: BP 93/61; PULSE 60; O2SAT 96
[2022-01-20 07:56] LABS: Add Urine Culture? No; Add Urine Microscopic? YES; Bacteria Urine TRACE /hpf; Bilirubin Urine Neg (Negative); Blood Urine 3+ (Negative); Glucose Urine UA Norm (Normal); Ketones Urine Negative (Negative); Leukocyte Esterase Urine Negative (Negative); Mucus Urine 3+ /hpf; Nitrate Urine Negative (Negative); Protein Urine Neg (Negative); RBC Urine 0-4 /hpf (0-2); Squamous Epithelial Cell Urine 0-4 /hpf (0-5); Urine Appearance Clear (CLEAR); Urine Color Yellow (Yellow); Urobilinogen Urine Norm (Negative); WBC Urine 0-4 /hpf (0-5); pH Urine 5 (5-7)
[2022-01-20 08:29] VITALS: BP 93/62
[2022-01-20 08:54] VITALS: BP 116/80; PULSE 67; O2SAT 97
[2022-01-20 09:03] VITALS: BP 112/76; PULSE 66; O2SAT 98
== END 2022-01-20 09:04 | disposition home or self-care (01) ==
PROVIDERS: Emergency Provider Family Medicine
DX: N50.812 Left testicular pain (principal); Z79.82 Long term (current) use of aspirin; I10 Essential (primary) hypertension; F17.220 Nicotine dependence, chewing tobacco, uncomplicated
CPT/HCPCS: 76870; 80053; 81001; 85025; 96374; 99285; J1885

== ENCOUNTER 2022-01-20 17:06 | Emergency (ER) | payer SELFPAY ==
[2022-01-20 17:27] VITALS: BP 140/91; PULSE 76; RESP 14; TEMP 36.8; O2SAT 97; BMI 21.4
--- NOTE | 2022-01-20 18:14 | CTR_ITS ---
PROCEDURE INFORMATION: Exam: CT Abdomen And Pelvis Without Contrast Exam date and time: 01/20/2022 6:49 PM Age: 51 years old Clinical indication: Pain; Other: RT flank; Additional info: Abd pain TECHNIQUE: Imaging protocol: Computed tomography of the abdomen and pelvis without contrast. Radiation optimization: All CT scans at this facility use at least one of these dose optimization techniques: automated exposure control; mA and/or kV adjustment per patient size (includes targeted exams where dose is matched to clinical indication); or iterative reconstruction. COMPARISON: CT abdomen pelvis w con* [id number] 12/04/2020 8:26 PM RADIATION DOSE METRICS: Total DLP (mGy-cm): 441.18 FINDINGS: Liver: Normal. No mass. Gallbladder and bile ducts: Normal. No calcified stones. No ductal dilation. Pancreas: Normal. No ductal dilation. Spleen: Normal. No splenomegaly. Adrenal glands: Normal. No mass. Kidneys and ureters: One or more nonobstructing left renal calyceal stones. 3 mm distal left ureteral stone, 2.5 cm proximal to the left UVJ mild left hydronephrosis. Stomach and bowel: Unremarkable. No obstruction. No mucosal thickening. Appendix: No evidence of appendicitis. Intraperitoneal space: Unremarkable. No free air. No significant fluid collection. Vasculature: Unremarkable. No abdominal aortic aneurysm. Lymph nodes: Unremarkable. No enlarged lymph nodes. Urinary bladder: Unremarkable as visualized. Reproductive: Unremarkable as visualized. Bones/joints: Stable L5 laminectomy. Soft tissues: Unremarkable. Other findings: Stable postoperative changes over the lumbar spine with metallic fixation and metallic artifact. CT/CT abdomen pelvis wo con [id number] IMPRESSION: 3 mm distal left ureteral stone, 2.5 cm proximal to the left UVJ mild left hydronephrosis.
--- NOTE | 2022-01-20 19:24 | W.ED.MALEGU ---
HPI - Male Genitourinary General: Chief complaint: Urogenital-Male Stated complaint: Abd pains Time Seen by Provider: 01/20/22 19:24 History of Present Illness: Mr. Cao is a 51-year-old gentleman presenting to the emergency department due to continued abdominal pain. Onset of symptoms was last night at about 2 AM and woke him up from sleep. Severe left sided with radiation to the groin. He was seen earlier this morning and had improvement of the symptoms, laboratory studies unremarkable largely and ultrasound of the scrotum at that time was negative. His symptoms returned approximately 2 hours prior to presenting and had not responded to medications that he was prescribed. Overall course of symptoms has worsened. Intensity is severe. Sharp and stabbing with some spasming quality. No other specific changes in health, exacerbating, or alleviating factors identified. Onset (ago): hour(s) Duration: intermittent Location: left flank Radiation: left testicle Severity: severe Exacerbating factors: none Review of Systems General: Reports: 10 or more systems reviewed and unremarkable except in HPI and below PFSH ED PFSH: Medical History Cannabis use disorder, moderate, dependence Chronic low back pain Generalized anxiety disorder Hypertension Major depressive disorder, recurrent, moderate Nicotine dependence, chewing tobacco, with unspecified nicotine-induced disorders Psychiatric care RLS (restless legs syndrome) Surgical History H/O rotator cuff surgery Left - 1989 History of lumbar laminectomy L5-S1 in 2017 History of tonsillectomy Family History Father Parkinson disease Other CAD (coronary artery disease) Stroke Social History Smoking and tobacco status: current every day smoker smokeless tobacco Smokeless tobacco user: chewing tobacco Smokeless tobacco details: Can lasts 3 days Quit status (tobacco): has tried quititng Number of times tried to quit tobacco: 3 Second hand smoke exposure: Yes Smoking risk assessment/counseling performed?: No Alcohol intake: former Desire information about alcohol rehabilitation?: No Counseling given: No Desire information about substance/drug rehabilitation?: No Counseling given: No Physical Exam Const: COMMON NORMALS: alert GENERAL APPEARANCE: cooperative, well developed and in distress (Pain) HENMT: COMMON NORMALS: normocephalic and atraumatic HEAD & SCALP: normocephalic and atraumatic Eye: COMMON NORMALS: conjunctivae normal CONJUNCTIVA: Yes conjunctivae normal SCLERA: sclerae normal Neck/C-Spine: COMMON NORMALS: supple GENERAL: Yes trachea midline Resp: COMMON NORMALS: clear to auscultation bilaterally EFFORT & INSPECTION: Yes able to speak in complete sentences AUSCULTATION: clear to auscultation bilaterally Cardio: COMMON NORMALS: regular rate and regular rhythm RATE: regular rate RHYTHM: regular rhythm GI: COMMON NORMALS: Soft to palpation PALPATION: Yes Soft to palpation and No Tenderness to palpation present (GI) Extremity: GENERAL: Yes normal exam except as noted and No edema Neuro: COMMON NORMALS: moves all extremities SENSORIUM/ORIENTATION: Yes alert and No Orientation impaired Psych: COMMON NORMALS: mental status grossly normal and Normal thought process present THOUGHT PROCESS: Normal thought process present Course Vital Signs: Vital signs: Vital Signs Temperature 98.3 F 01/20/22 17:27 Pulse Rate 51 L 01/20/22 21:06 Respiratory Rate 16 01/20/22 21:06 Blood Pressure 128/90 01/20/22 21:06 Pulse Oximetry 95 01/20/22 21:06 Oxygen Delivery Me thod 01/20/22 20:02 MDM - Male Medical Decision Making 51-year-old gentleman presenting as a ED visit for abdominal discomfort and groin pain. Patient is uncomfortable appearing due to pain however nontoxic. Prior evaluation reviewed without evidence of testicular pathology. Symptoms treatments ordered. Laboratory studies now demonstrate bacteria in urine though patient does not have other evidence of UTI. CT abdomen pelvis notable for distal left ureteral stone 3 mm with mild left hydronephrosis. Patient proved on reassessment. Case was discussed with urology and patient instructed to follow-up with urology. Due to presence of bacteria I will treat with antibiotics as there is no evidence of sepsis or significant systemic involvement requiring inpatient management, this is more prophylactic in nature given bacteria development on urinalysis. The results of ED evaluation were discussed with the patient including prescriptions and/or symptomatic cares (if applicable) including appropriate and responsible use, followup plan, and return precautions. The patient verbalized understanding and felt safe for discharge. Medical Records I reviewed the patient's medical records. Lab Data I reviewed the patient's lab results. Radiology Impressions Abdomen/Pelvis CT 01/20/22 18:14 IMPRESSION: 3 mm distal left ureteral stone, 2.5 cm proximal to the left UVJ mild left hydronephrosis. Laboratory Results Urine Color Brown (Yellow) 01/20/22 19: Urine Appearance Cloudy (CLEAR) A 01/20/22 19: Urine pH 5 (5-7) 01/20/22 19: Ur Specific [place] 1.025 (1.005-1.030) 01/20/22 19: Urine Protein 1+ (Negative) H 01/20/22 19: Urine Glucose (UA) Norm (Normal) 01/20/22 19: Urine Ketones Negative (Negative) 01/20/22 19: Urine Blood 3+ (Negative) H 01/20/22 19: Urine Nitrate Negative (Negative) 01/20/22 19: Urine Bilirubin 1+ (Negative) H 01/20/22 19: Urine Urobilinogen Norm mg/dL (Negative) 01/20/22 19: Ur Leukocyte Esterase Negative (Negative) 01/20/22 19:27 Urine RBC 5-10 /hpf (0-2) H 01/20/22 19:27 Urine WBC 0-4 /hpf (0-5) H 01/20/22 19:27 Ur Squamous Epith Cells 0-4 /hpf (0-5) H 01/20/22 19:27 Amorphous Sediment 2+ /hpf 01/20/22 19:27 Urine Bacteria 3+ /hpf (NONE) H 01/20/22 19:27 Discharge Plan Discharge Patient Disposition: Home Clinical Impression: Ureterolithiasis, Abdominal pain Condition: Stable Prescriptions: New ondansetron 4 mg tablet,disintegrating 4 mg PO Q8H PRN (Reason: nausea and vomiting) Qty: 15 0RF Rx Instructions: rx not filled (rx written 01/20/22) oxycodone 5 mg tablet 5 mg PO Q4H PRN (Reason: pain) Qty: 10 0RF Rx Instructions: rx not filled (rx written 01/20/22) ciprofloxacin HCl [Cipro] 500 mg tablet 500 mg PO BID Qty: 19 0RF Rx Instructions: rx not filled (rx written 01/20/22) No Action aspirin [Adult Aspirin Regimen] 81 mg tablet,delayed release (DR/EC) 81 mg PO .3-4 TIMES A WEEK bupropion HCl [Wellbutrin XL] 150 mg tablet extended release 24 hr 150 mg PO QAM Qty: 90 0RF buspirone 5 mg tablet 5 mg PO TID Qty: 270 0RF ropinirole 1 mg tablet 4 mg PO BEDTIME Qty: 360 0RF Flomax 0.4 mg capsule 0.4 mg PO BEDTIME Rx Instructions: rx not filled (rx written 01/20/22) oxycodone 5 mg tablet 5 mg PO Q4H PRN (Reason: pain) Qty: 25 0RF diclofenac sodium 75 mg tablet,delayed release (DR/EC) 75 mg PO Q12H PRN (Reason: pain) Qty: 20 0RF Rx Instructions: rx not filled (rx written 01/20/22) Discharge Orders: Discharge ED (Routine); Ordered 01/20/22 Ordered By: Suhail Brown Discharge Diet: Usual diet Discharge Activity: Increase activity as tolerated Patient Instructions: Abdominal Pain (ED), Ureteral Stones (ED), Opioid Safety, Pain Management Activity Restrictions/Additional Instructions: Thank you for visiting the emergency department. You were seen and evaluated for abdominal pain. You were found to have a kidney stone in the distal ureter which will likely pass on its own. There was some bacteria in your urine and therefore you will be started on antibiotics and I recommend close follow-up with urology. Please call the clinic in the morning for an appointment, their phone number is [phone]. Please return to the emergency department for fevers, nausea, vomiting, worsening or uncontrolled pain, or anything else that you are concerned about a feel needs emergency department evaluation. Coding Level of Care Code ED Fancy [employer]er for Billy Fwkavon Exam Comprehensive
[2022-01-20 19:27] VITALS: BP 179/102; PULSE 67; RESP 18; O2SAT 98
[2022-01-20] MEDS: ketorolac 30 mg/mL INJ 15 MG IVP (19:50)
[2022-01-20] MEDS: tamsulosin 0.4 mg Capsule PO (19:51)
[2022-01-20] MEDS: ondansetron 2 mg/ML SDV 2 mL 4 MG IVP (19:52)
[2022-01-20] MEDS: morphine 4 mg/mL SDV 1 mL IVP (19:53)
[2022-01-20 20:02] VITALS: BP 146/78; RESP 18; O2SAT 98
[2022-01-20 20:06] LABS: Urine Appearance Cloudy (CLEAR); Urine Color Brown (Yellow); pH Urine 5 (5-7)
[2022-01-20 20:07] LABS: Add Urine Microscopic? YES; Bilirubin Urine 1+ (Negative); Blood Urine 3+ (Negative); Glucose Urine UA Norm (Normal); Ketones Urine Negative (Negative); Leukocyte Esterase Urine Negative (Negative); Nitrate Urine Negative (Negative); Protein Urine 1+ (Negative); Specific Gravity, Urine 1.025 (1.005-1.030); Squamous Epithelial Cell Urine 0-4 /hpf (0-5); Urobilinogen Urine Norm (Negative); WBC Urine 0-4 /hpf (0-5)
[2022-01-20 20:08] LABS: Add Urine Culture? Yes; Amorphous Sediment Urine 2+ /hpf; Bacteria Urine 3+ /hpf
[2022-01-20 20:58] VITALS: RESP 18
[2022-01-20] MEDS: oxyCODONE 5 mg IR Tab/Cap PO (20:58)
[2022-01-20] MEDS: ciprofloxacin 500 mg Tablet PO (20:58)
[2022-01-20] MEDS: ondansetron 4 MG Tablet 8 MG PO (21:00)
[2022-01-20] MEDS: oxyCODONE 5 mg IR Tab/Cap 20 MG PO (21:00)
[2022-01-20 21:06] VITALS: BP 128/90; PULSE 51; RESP 16; O2SAT 95
--- NOTE | 2022-01-21 07:47 | PC.NURSE ---
4 oxycodone and 2 zofran were sent home with the patient per Dr. Brown
== END 2022-01-20 21:07 | disposition home or self-care (01) ==
PROVIDERS: Emergency Medicine; Emergency Provider Emergency Medicine
DX: N20.1 Calculus of ureter (principal); Z79.82 Long term (current) use of aspirin; I10 Essential (primary) hypertension; F17.220 Nicotine dependence, chewing tobacco, uncomplicated
CPT/HCPCS: 36415; 74176; 81001; 87040; 87086; 96374; 96375; 99284; J1885; J2270; J2405; Q0162

== ENCOUNTER 2022-01-22 09:48 | Emergency (ER) | payer SELFPAY ==
[2022-01-22 09:49] VITALS: BP 126/86; PULSE 72; RESP 18; TEMP 36.7; O2SAT 93; BMI 21.4
--- NOTE | 2022-01-22 09:57 | W.ED.MALEGU ---
HPI - Male Genitourinary General: Chief complaint: Urogenital-Male Stated complaint: kidney stones Time Seen by Provider: 01/22/22 09:50 Source: patient Mode of arrival: ambulatory History of Present Illness: 51-year-old male seen 2 days ago initially was complaining of testicular pain had no significant hematuria continue to have pain and returned was found to have a 3.5 mm distal renal stone. He was not able to get his medications filled so he has not been using any of the pain medications. MD Complaint: testicle pain Onset (ago): day(s) Location: left flank Radiation: left testicle Severity: severe Quality: sharp Relieving factors: medication Exacerbating factors: none Associated symptoms: Deny discharge, dysuria, fevers/chills, hematuria, nausea, rash, swelling, urinary incontinence, urinary retention, mass or vomiting Review of Systems Const: Denies: fever(s), chills, body aches, change in appetite, fatigue or malaise ENMT: Denies: throat pain, ear or mastoid pain, nasal discharge or nasal congestion Card: Denies: chest pain, edema, dyspnea on exertion or orthopnea Resp: Denies: dyspnea, productive cough or non-productive cough GI: Reports: abdominal pain; Denies: nausea or vomiting : Reports: flank pain; Denies: difficulty urinating, dysuria, urinary frequency, urinary urgency, urinary incontinence or hematuria Skin/Breast: Denies: rash or pruritus PFSH ED PFSH: Medical History Cannabis use disorder, moderate, dependence Chronic low back pain Generalized anxiety disorder Hypertension Major depressive disorder, recurrent, moderate Nicotine dependence, chewing tobacco, with unspecified nicotine-induced disorders Psychiatric care RLS (restless legs syndrome) Surgical History H/O rotator cuff surgery Left - 1989 History of lumbar laminectomy L5-S1 in 2017 History of tonsillectomy Family History Father Parkinson disease Other CAD (coronary artery disease) Stroke Social History Smoking and tobacco status: current every day smoker smokeless tobacco Smokeless tobacco user: chewing tobacco Smokeless tobacco details: Can lasts 3 days Quit status (tobacco): has tried quititng Number of times tried to quit tobacco: 3 Second hand smoke exposure: Yes Smoking risk assessment/counseling performed?: No Alcohol intake: former Desire information about alcohol rehabilitation?: No Counseling given: No Desire information about substance/drug rehabilitation?: No Counseling given: No Physical Exam Const: GENERAL APPEARANCE: cooperative and comfortable ORIENTATION/CONSCIOUSNESS: Yes awake, Yes oriented to person, Yes oriented to place and Yes oriented to time HENMT: COMMON NORMALS: normocephalic, atraumatic and hearing grossly normal bilaterally HEAD & SCALP: normocephalic and atraumatic Resp: COMMON NORMALS: normal respiratory effort, No retractions, No use of accessory muscles and clear to auscultation bilaterally AUSCULTATION: clear to auscultation bilaterally Cardio: COMMON NORMALS: regular rate, regular rhythm and No murmurs present (Cardio) RATE: regular rate RHYTHM: regular rhythm GI: COMMON NORMALS: Soft to palpation and No hepatosplenomegaly present AUSCULTATION: Yes normoactive bowel sounds PALPATION: Yes Soft to palpation, No Tenderness to palpation present (GI), No Guarding due to palpation present (GI) and Yes No hepatosplenomegaly present Extremity: COMMON NORMALS: normal to inspection, capillary refill normal, no clubbing, cyanosis or edema, no calf tenderness and no pedal edema Neuro: SENSORIUM/ORIENTATION: Yes oriented to person, Yes oriented to place and Yes oriented to time Skin: COMMON NORMALS: no rashes or lesions noted GENERAL SKIN EXAM: no rashes or lesions noted Course Vital Signs: Vital signs: Vital Signs Temperature 98.1 F 01/22/22 09:49 Pulse Rate 74 01/22/22 11:56 Respiratory Rate 14 01/22/22 11:56 Blood Pressure 126/86 01/22/22 11:56 Pulse Oximetry 97 01/22/22 11:56 Oxygen Delivery Me thod 01/22/22 11:56 MDM - Male Medical Decision Making Patient has not refilled his pain medications. Pain controlled after given medications here and encouraged him to follow-up and get his pain medications discussed within the usual course of renal stones. We will refer him to urology. Return to emergency room if pain is not controlled. Medical Records I reviewed the patient's medical records. Lab Data I reviewed the patient's lab results. : 01/22/22 10:15 01/22/22 10:15 Laboratory Results WBC 15.2 10^3/uL (4.0-10.0) H 01/22/22 10:15 RBC 4.27 10^6/uL (4.1-5.3) 01/22/22 10:15 Hgb 13.6 g/dL (11.7-16.6) 01/22/22 10:15 Hct 39.4 % (42.0-52.0) L 01/22/22 10:15 MCV 92.3 fl (80-94) 01/22/22 10:15 MCH 31.9 pg (28.0-34.0) 01/22/22 10:15 MCHC 34.5 g/dL (30.0-36.0) 01/22/22 10:15 RDW 12.4 % (12.1-15.1) 01/22/22 10:15 Plt Count 156 10^3/cmm (130-400) 01/22/22 10:15 MPV 11.3 fL (7.4-10.4) H 01/22/22 10:15 Neut % (Auto) 81.4 % 01/22/22 10:15 Lymph % (Auto) 5.1 % 01/22/22 10:15 [place] % (Auto) 12.6 % 01/22/22 10:15 Eos % (Auto) 0.0 % 01/22/22 10:15 Baso % (Auto) 0.3 % 01/22/22 10:15 Neut # (Auto) 12.38 10^3/uL (1.8-7.7) H 01/22/22 10:15 Lymph # (Auto) 0.8 10^3/uL (0.8-4.8) 01/22/22 10:15 [place] # (Auto) 1.9 10^3/uL (0.2-0.9) H 01/22/22 10:15 Eos # (Auto) 0.0 10^3/uL (0.0-0.8) 01/22/22 10:15 Baso # (Auto) 0.0 10^3/uL (0.0-0.1) 01/22/22 10:15 Nucleated RBC % (auto) 0 % 01/22/22 10:15 Nucleated RBCs # 0.0 /100WBC 01/22/22 10:15 Sodium 132 mmol/L (136-145) L 01/22/22 10:15 Potassium 3.7 mmol/L (3.5-5.1) 01/22/22 10:15 Chloride 99 mmol/L (98-107) 01/22/22 10:15 Carbon Dioxide 22 mmol/L (22-29) 01/22/22 10:15 Anion Gap 14.7 (5-19) 01/22/22 10:15 BUN 16 mg/dL (6-20) 01/22/22 10:15 Creatinine 1.2 mg/dL (0.7-1.2) 01/22/22 10:15 GFR Calculation 64.4 mL/min (90-130) L 01/22/22 10:15 Glucose 104 mg/dL (65-115) 01/22/22 10:15 Calculated Osmolality 275 mOsm/kg (285-295) L 01/22/22 10:15 Calcium 8.7 mg/dL (8.5-10.5) 01/22/22 10:15 Discharge Plan Discharge Patient Disposition: Home Clinical Impression: Left nephrolithiasis Condition: Stable Prescriptions: New oxycodone 5 mg tablet 5 mg PO Q4H PRN (Reason: pain) Qty: 25 0RF No Action aspirin [Adult Aspirin Regimen] 81 mg tablet,delayed release (DR/EC) 81 mg PO .3-4 TIMES A WEEK bupropion HCl [Wellbutrin XL] 150 mg tablet extended release 24 hr 150 mg PO QAM Qty: 90 0RF buspirone 5 mg tablet 5 mg PO TID Qty: 270 0RF ropinirole 1 mg tablet 4 mg PO BEDTIME Qty: 360 0RF Flomax 0.4 mg capsule 0.4 mg PO BEDTIME Rx Instructions: rx not filled (rx written 01/20/22) diclofenac sodium 75 mg tablet,delayed release (DR/EC) 75 mg PO Q12H PRN (Reason: pain) Qty: 20 0RF Rx Instructions: rx not filled (rx written 01/20/22) ondansetron 4 mg tablet,disintegrating 4 mg PO Q8H PRN (Reason: nausea and vomiting) Qty: 15 0RF Rx Instructions: rx not filled (rx written 01/20/22) oxycodone 5 mg tablet 5 mg PO Q4H PRN (Reason: pain) Qty: 10 0RF Rx Instructions: rx not filled (rx written 01/20/22) ciprofloxacin HCl [Cipro] 500 mg tablet 500 mg PO BID Qty: 19 0RF Rx Instructions: rx not filled (rx written 01/20/22) Discharge Orders: Discharge ED (Routine); Ordered 01/22/22 Ordered By: Luis Cox Patient Instructions: Opioid Safety, Pain Management Activity Restrictions/Additional Instructions: Case management will make arrangements for you to have follow-up with Dr. Christie for the kidney stones. Strain urine to collect stone. Coding Level of Care Code ED Supervisor [employer] for Billy Lozada
[2022-01-22 10:14] VITALS: RESP 14; O2SAT 95
[2022-01-22] MEDS: morphine 4 mg/mL SDV 1 mL IVP (10:14)
[2022-01-22 10:21] LABS: Basophils % 0.3 %; Hematocrit 39.4 % (42.0-52.0); Hemoglobin 13.6 g/dL (11.7-16.6); Lymphocytes # 0.8 10^3/uL (0.8-4.8); Lymphocytes % 5.1 %; Mean Corpuscular HGB Conc 34.5 g/dL (30.0-36.0); Mean Corpuscular Hemoglobin 31.9 pg (28.0-34.0); Mean Corpuscular Volume 92.3 fl (80-94); Mean Platelet Volume 11.3 fL (7.4-10.4); Monocytes # 1.9 10^3/uL (0.2-0.9); Monocytes % 12.6 %; Neutrophils # 12.38 10^3/uL (1.8-7.7); Neutrophils % 81.4 %; Nucleated Red Blood Cells % 0 %; Platelet Count 156 10^3/cmm (130-400); Red Blood Count 4.27 10^6/uL (4.1-5.3); Red Cell Distribution Width 12.4 % (12.1-15.1); White Blood Count 15.2 10^3/uL (4.0-10.0)
[2022-01-22 10:38] LABS: Anion Gap 14.7 (5-19); Blood Urea Nitrogen 16 mg/dL (6-20); Calcium 8.7 mg/dL (8.5-10.5); Carbon Dioxide 22 mmol/L (22-29); Chloride 99 mmol/L (98-107); Glomerular Filtration Rate 64.4 mL/min (90-130); Glucose 104 mg/dL (65-115); Osmolality Calculated 275 mOsm/kg (285-295); Potassium 3.7 mmol/L (3.5-5.1); Sodium 132 mmol/L (136-145)
--- NOTE | 2022-01-22 10:52 | PC.PHAR ---
pt states he takes care of his own medications-prescriptions written on 01/20/22 havent been filled pt states he has trouble affording his medications-pt states he just ran out of buspar 5mg tid (last filled 07/30/21 30d/s) and wellbutrin xl 150mg qam (last filled 07/07/21 30d/s) on 12/28/21 [facility] states they have rx on hold on 11/26/21
[2022-01-22 11:56] VITALS: BP 126/86; PULSE 74; RESP 14; O2SAT 97
== END 2022-01-22 11:58 | disposition home or self-care (01) ==
PROVIDERS: Emergency Provider Family Medicine
DX: N20.0 Calculus of kidney (principal); Z79.82 Long term (current) use of aspirin; I10 Essential (primary) hypertension; F17.220 Nicotine dependence, chewing tobacco, uncomplicated
CPT/HCPCS: 80048; 85025; 96374; 99284; J2270

== ENCOUNTER 2022-06-12 19:03 | Emergency (ER) | payer OTHER, SELFPAY ==
[2022-06-12 19:10] VITALS: BP 126/84; PULSE 89; RESP 19; TEMP 37.2; O2SAT 95; BMI 20.3
--- NOTE | 2022-06-12 19:59 | ED_ITS ---
HPI - COVID General: Chief Complaint: COVID symptoms Stated Complaint: Covid exposure, symptoms Time Seen by Provider: 06/12/22 19:58 History of Present Illness: 51-year-old male patient comes in today with complaints of chills, body aches, and chest discomfort with inspiration. Abigail ent reports his tested positive for COVID-19 on Tuesday. Patient started having symptoms on . Patient appears nontoxic. Patient appears unwell. Patient appears in mild to no pain. Patient has a history of major depressive disorder, hypertension, and chronic pain syndrome. COVID 19 common symptoms: positive fever(s), chills and body aches; negative throat pain or vomiting COVID Results: SARS-CoV-2 Antigen (Rapid) positive (Negative) 06/12/22 19:58 SARS-CoV-2 RNA (RT-PCR) Not detected (NOT DETECTED) 10/04/21 2 3:00 Review of Systems General: Reports: 10 or more systems reviewed and unremarkable except in HPI and below Const: Reports: fever(s), chills and body aches ENMT: Denies: throat pain Resp: Reports: pain on inspiration GI: Denies: vomiting Skin/Breast: Denies: rash PFSH ED PFSH: Medical History Cannabis use disorder, moderate, dependence Chronic low back pain Generalized anxiety disorder Hypertension Major depressive disorder, recurrent, moderate Nicotine dependence, chewing tobacco, with unspecified nicotine-induced disorders Psychiatric care RLS (restless legs syndrome) Surgical History H/O rotator cuff surgery Left - 1989 History of lumbar laminectomy L5-S1 in 2017 History of tonsillectomy Family History Father Parkinson disease Other CAD (coronary artery disease) Stroke Social History Smoking and tobacco status: current every day smoker smokeless tobacco Smokeless tobacco user: chewing tobacco Smokeless tobacco details: Can lasts 3 days Quit status (tobacco): has tried quititng Number of times tried to quit tobacco: 3 Second hand smoke exposure: Yes Smoking risk assessment/counseling performed?: No Alcohol intake: former Desire information about alcohol rehabilitation?: No Counseling given: No Desire information about substance/drug rehabilitation?: No Counseling given: No Physical Exam Const: COMMON NORMALS: alert HENMT: COMMON NORMALS: normocephalic HEAD & SCALP: normocephalic MOUTH: Normal oral and palatal mucosa present Neck/C-Spine: COMMON NORMALS: full ROM Resp: COMMON NORMALS: normal respiratory effort and clear to auscultation bilaterally AUSCULTATION: clear to auscultation bilaterally Cardio: COMMON NORMALS: regular rate and regular rhythm RATE: regular rate RHYTHM: regular rhythm Back/Pelvis: COMMON NORMALS: thoracic and lumbar spine normal to inspection Extremity: COMMON NORMALS: no pedal edema Neuro: SENSORIUM/ORIENTATION: Yes alert Skin: COMMON NORMALS: turgor normal GENERAL SKIN EXAM: turgor normal Course Vital Signs: Vital signs: Vital Signs Temperature 98.9 F 06/12/22 19:10 Pulse Rate 89 06/12/22 19:10 Respiratory Rate 19 H 06/12/22 19:10 Blood Pressure 126/84 06/12/22 19:10 Pulse Oximetry 97 06/12/22 20:13 Oxygen Delivery Me thod 06/12/22 20:13 MDM - COVID Medical Decision Making 51-year-old male patient comes in with body aches and chills starting on . Patient appears nontoxic. Patient appears mildly unwell. On exam lungs are clear to auscultation. No edema is noted in the extremities. Patient moves all extremities well. Differential diagnosis includes but not limited to influenza, COVID-19, upper respiratory infection, viral syndrome. Patient was positive for COVID-19. No signs of serious illness was noted at this time. Reviewed exam with patient with recommendations of supportive care and need for follow-up or return. Patient stated understanding. Lab Data Laboratory Results Influenza Type A Ag negative (Negative) 06/12/22 20:13 Influenza Type B Ag negative (Negative) 06/12/22 20:13 SARS-CoV-2 Ag (Rapid) positive (Negative) 06/12/22 19:58 SARS-CoV-2 Antigen (Rapid) positive (Negative) 06/12/22 19:58 SARS-CoV-2 RNA (RT-PCR) Not detected (NOT DETECTED) 10/04/21 2 3:00 Discharge Plan Discharge Patient Disposition: Home Clinical Impression: COVID-19 Condition: Stable Prescriptions: No Action aspirin [Adult Aspirin Regimen] 81 mg tablet,delayed release (DR/EC) 81 mg PO .3-4 TIMES A WEEK bupropion HCl [Wellbutrin XL] 150 mg tablet extended release 24 hr 150 mg PO QAM Qty: 90 0RF buspirone 5 mg tablet 5 mg PO TID Qty: 270 0RF ropinirole 1 mg tablet 4 mg PO BEDTIME Qty: 360 0RF Flomax 0.4 mg capsule 0.4 mg PO BEDTIME Rx Instructions: rx not filled (rx written 01/20/22) oxycodone 5 mg tablet 5 mg PO Q4H PRN (Reason: pain) Qty: 25 0RF diclofenac sodium 75 mg tablet,delayed release (DR/EC) 75 mg PO Q12H PRN (Reason: pain) Qty: 20 0RF Rx Instructions: rx not filled (rx written 01/20/22) ondansetron 4 mg tablet,disintegrating 4 mg PO Q8H PRN (Reason: nausea and vomiting) Qty: 15 0RF Rx Instructions: rx not filled (rx written 01/20/22) oxycodone 5 mg tablet 5 mg PO Q4H PRN (Reason: pain) Qty: 10 0RF Rx Instructions: rx not filled (rx written 01/20/22) ciprofloxacin HCl [Cipro] 500 mg tablet 500 mg PO BID Qty: 19 0RF Rx Instructions: rx not filled (rx written 01/20/22) Discharge Orders: Discharge ED (Routine); Ordered 06/12/22 Ordered By: Thompson Elizabeth Referrals: Sarthak Perry MD [Primary Care Provider] - Discharge Activity: Increase activity as tolerated Patient Instructions: COVID-19 (Coronavirus Disease 2019) (ED) Activity Restrictions/Additional Instructions: Drink plenty of water and fluids. It is important to stay well-hydrated while dealing with the acute illness such as COVID-19 and influenza. Use acetaminophen and ibuprofen for pain and discomfort. Follow-up with primary care for further instruction. Return to ED for worsening symptoms such as increased shortness of breath, severe chest pain, or new concerns. Coding Level of Care Code ED Superintendent [employer] for Billy Lozada
[2022-06-12 20:13] VITALS: O2SAT 97
[2022-06-12 20:33] LABS: Influenza A by IFA negative (Negative); Influenza B by IFA negative (Negative)
[2022-06-12 20:34] LABS: SARS Covid-2 Antigen positive (Negative)
[2022-06-12 20:53] VITALS: PULSE 90; O2SAT 96
== END 2022-06-12 20:53 | disposition home or self-care (01) ==
PROVIDERS: Emergency Medicine; Emergency Provider Nurse Practitioner Family; PCP Family Medicine Adult Medicine
DX: U07.1 COVID-19 (principal); I10 Essential (primary) hypertension; F17.220 Nicotine dependence, chewing tobacco, uncomplicated; Z79.82 Long term (current) use of aspirin
CPT/HCPCS: 87426; 87804; 99283

== ENCOUNTER → 2024-02-06 11:40 | Outpatient (BNVA) | payer OTHER, SELFPAY | PROVIDERS: PCP Family Medicine Adult Medicine; Visit Provider Nurse Practitioner Psychiatric/Mental Health | DX: Z79.899 Other long term (current) drug therapy (principal) | CPT/HCPCS: 80053 ==